=== PATIENT | male | born 1940 | race Caucasian/White ===

== ENCOUNTER 2016-10-01 07:29 | Emergency (ER) | payer OTHER ==
[2016-10-01 07:44] VITALS: TEMP 98.1; BMI 32.2
--- NOTE | 2016-10-01 08:18 | PDOC ---
History of Present Illness - General History Source: Patient, Family Exam Limitations: No Limitations - History of Present Illness Initial Comments: 10/01/16 08:12 The patient is a 76-year-old male with a past medical history of BPH, gastritis , HTN, Alzheimer's, constipation, and prostate cancer, who presents to the emergency department today complaining of abdominal pain, being unable to urinate, and constipation. The patient is primarily Malawian-speaking however his daughter is in the room who translates. Patient states that his symptoms began approximately 2 days ago. He states that he has a weakened stream, and it is hard for him to initiate urination. He states that he feels a lot of pressure near his genital region. He admits to dysuria, urgency and frequency. Denies hematuria. Daughter states that his pants are wet, because he is "dribbling urine". His last bowel movement was 2 days ago. Denies fevers, chills , fatigue, weakness, weight change, recent illness, nausea, vomiting, diarrhea, and blood in the stool. <Liz Hendricks - Last Filed: 10/02/16 08:35> <Cleo Matthews - Last Filed: 10/02/16 09:59> - General Chief Complaint: Urinary Problem Stated Complaint: UNABLE TO MAKE A BOWEL MOVEMENT/UNABLE TO URINATE Time Seen by Provider: 10/01/16 07:48 Past History - Travel Traveled outside of the country in the last 30 days: No Close contact w/someone who was outside of country & ill: No - Past Medical History Anemia: No Asthma: No Cancer: Yes (PROSTATE CANCER) Cardiac Disorders: No CVA: No COPD: No Dementia: Yes (ALZHEIMER'S) Diabetes: No GI Disorders: Yes (GASTRITIS) Disorders: No HTN: Yes Hypercholesterolemia: No Liver Disease: No Suicide Attempt (Hx): No Seizures: No Thyroid Disease: No - Surgical History Abdominal Surgery: No Appendectomy: No Cardiac Surgery: No Cholecystectomy: No Lung Surgery: No Neurologic Surgery: No Orthopedic Surgery: No - Immunization History Immunization Up to Date: No - Psycho/Social/Smoking Cessation Hx Anxiety: No Suicidal Ideation: No Smoking History: Never smoked Have you smoked in the past 12 months: No Information on smoking cessation initiated: No Hx Alcohol Use: No Drug/Substance Use Hx: No Substance Use Type: None Hx Substance Use Treatment: No <Liz Hendricks - Last Filed: 10/02/16 08:35> <Cleo Matthews - Last Filed: 10/02/16 09:59> - Past Medical History Allergies/Adverse Reactions: Allergies Allergy/AdvReac Type Severity Reaction Status Date / Time No Known Allergies Allergy Verified 10/01/16 07:41 Home Medications: Ambulatory Orders Amlodipine Besylate [Norvasc -] 5 mg PO DAILY 10/01/16 Atorvastatin Ca [Lipitor] 80 mg PO HS 10/01/16 Bisacodyl [Dulcolax -] 5 mg PO DAILY 10/01/16 Cholecalciferol (Vitamin D3) [Vitamin D3 -] 50,000 unit PO DAILY 10/01/16 Citalopram Hydrobromide [Celexa -] 10 mg PO DAILY 10/01/16 Cyanocobalamin (Vitamin B-12) [Vitamin B-12] 5,000 mcg PO DAILY 10/01/16 Furosemide [Lasix -] 20 mg PO DAILY 10/01/16 Loratadine 10 mg PO DAILY 10/01/16 Losartan Potassium [Cozaar -] 25 mg PO DAILY 10/01/16 Omeprazole 20 mg PO DAILY 10/01/16 Oxybutynin Chloride [Oxybutynin Chloride ER] 10 mg PO DAILY 10/01/16 Tamsulosin HCl [Flomax] 0.4 mg PO DAILY 10/01/16 Review of Systems - Review of Systems Able to Perform ROS?: Yes Constitutional: No: Chills, Fever, Malaise, Weakness, Unintentional Wgt. Loss ABD/GI: Yes: Constipated, Other (Abdominal pressure). No: Vomiting : Yes: Burning, Dysuria, Frequency, Incontinence, Urgency. No: Flank Pain, Hematuria <Luciana Hendricksca - Last Filed: 10/02/16 08:35> *Physical Exam - Vital Signs Last Vital Signs Temp Pulse Resp BP Pulse Ox 98.1 F 84 18 133/105 100 10/01/16 07:42 10/01/16 07:42 10/01/16 07:42 10/01/16 07:42 10/01/16 07:42 - Physical Exam General Appearance: Yes: Nourished, Appropriately Dressed, Other (Urine stain on front of pants. AAOx3, breathing easily). No: Apparent Distress (Pt. appears anxious) Respiratory/Chest: positive: Lungs Clear, Normal Breath Sounds. negative: Respiratory Distress, Accessory Muscle Use Cardiovascular: positive: Regular Rhythm, Regular Rate, S1, S2 (present). negative: Murmur Gastrointestinal/Abdominal: positive: Tender (TTP diffusely, worse over suprapubic region), Soft, Decreased BS, Distended. negative: Organomegaly, Pulsatile Mass Male Genitalia: positive: normal genitalia. negative: normal prostate (enlarged , smooth prostate), testicular tenderness, epididymus tender, hematuria Rectal Exam: positive: heme negative stool, normal rectal tone. negative: NL Prostate (enlarged smooth), heme positive stool Neurologic: positive: marketing strategist II-XII NML intact, Fully Oriented, Alert, Normal Mood/ Affect, Normal Response, Motor Strength 5/5 <Liz Hendricks - Last Filed: 10/02/16 08:35> - Vital Signs Last Vital Signs Temp Pulse Resp BP Pulse Ox 98.1 F 65 18 145/77 99 10/01/16 07:42 10/01/16 15:01 10/01/16 15:01 10/01/16 15:01 10/01/16 15:01 <Cleo Matthews - Last Filed: 10/02/16 09:59> ED Treatment Course - LABORATORY CBC & Chemistry Diagram: 10/01/16 09:00 10/01/16 09:00 - RADIOLOGY Radiology Studies Ordered: Category Date Time Status ABDOMEN-KUB FLAT PLATE [RAD] Stat Radiology 10/01/16 08:10 Ordered <Liz Hendricks - Last Filed: 10/02/16 08:35> - LABORATORY CBC & Chemistry Diagram: 10/01/16 09:00 10/01/16 09:00 - ADDITIONAL ORDERS Additional order review: 10/01/16 09:00 RBC 3.78 L MCV 90.0 MCHC 34.3 RDW 13.4 MPV 7.6 Neutrophils % 88.5 H Lymphocytes % 5.7 L Monocytes % 4.6 Eosinophils % 0.9 Basophils % 0.3 - Medications Given in the ED: ED Medications Discontinued Medications Generic Name Dose Route Start Last Admin Trade Name Freq PRN Reason Stop Dose Admin Sodium Chloride 1,000 mls @ 125 mls/hr 10/01/16 10:06 10/01/16 10:15 Normal Saline - IV 10/01/16 18:05 125 mls/hr ASDIR STA Administration <Cleo Matthews - Last Filed: 10/02/16 09:59> Medical Decision Making - Medical Decision Making 10/01/16 08:24 The patient is a 76-year-old male with a past medical history of BPH, gastritis , HTN, Alzheimer's, constipation, and prostate cancer, who presents to the emergency department today complaining of suprapubic pain, being unable to urinate, and constipation. Vital signs are stable, patient is afebrile. Symptoms concerning for urinary retention, and possible urinary tract infection. 1. CBC, CMP, UA, UC 2. KUB flat and upright 3. Bladder scanner to look for retention 4. Re-evaluate 10/01/16 12:14 Pt. has made a little urine, but still c/o of pressure, but feeling better. Urinalysis is negative for infection at this time. Lab work is notable for a white blood cell count of 12.8 with 88% lymphs, and a sodium of 128. We will give IV fluids at this time for the sodium. WBC possibly elevated d/t constipation. Bladder scanner shows greater than 600 mL of urine within the lower bladder will order straight catheter at this time. X-ray shows no evidence of obstruction. With a nonspecific bowel gas pattern. 10/01/16 13:18 Pt. received straight cath with 695 ml of output. Pt. states he is feeling much better now that he has urinated. VVS, and pt is afebrile, will discharge pt home when IV fluids finish. 10/01/16 14:22 IV fluids are finished at this time. Pt. able to urine approximately 200ml of urine after cath out. Pt. wants to move his bowels. Pt to be discharged home. He is to follow up with his primary care doctor within the week. <Liz Hendricks - Last Filed: 10/02/16 08:35> *DC/Admit/Observation/Transfer - Discharge Dispostion Admit: No <Liz Hendricks - Last Filed: 10/02/16 08:35> - Attestations Physician Attestion: I reviewed the case with the mid-level practitioner and agree with the mid- level practitioner's assessment, diagnosis and disposition. <ByronCleo - Last Filed: 10/02/16 09:59> Diagnosis at time of Disposition: Acute urinary retention Constipation Qualifiers: Constipation type: unspecified constipation type Qualified Code(s): K59.00 - Constipation, unspecified - Discharge Dispostion Disposition: HOME Condition at time of disposition: Improved - Referrals Referrals: Josi Fortune MD [Primary Care Provider] - - Patient Instructions Printed Discharge Instructions: DI for Urinary Retention in Men, DI for Constipation Additional Instructions: Tuviste retencin urinaria y estreimiento. Termine el enema segn lo programado para ochoa colonoscopia maana. Beber mucho lquido. Raiza el seguimiento con ochoa mdico de atencin primaria antes del viernes. Regrese a la DE si tiene empeoramiento del dolor abdominal, nuevas fiebres, escalofros, cambios en el estado mental o cualquier otro cambio en adela sntomas Print Language: MONGOLIAN
[2016-10-01 09:11] LABS: BASOPHIL 0.3 % (0-2.0); EOSINOPHIL 0.9 % (0-4.5); MCH 30.9 pg (25.7-33.7); MCHC 34.3 g/dl (32.0-35.9); MEAN PLT VOLUME 7.6 fl (7.5-11.1); NEUTROPHILS 88.5 % (42.8-82.8); RDW 13.4 % (11.9-15.9); WHITE BLOOD COUNT 12.9 K/mm3 (4.0-10.0)
[2016-10-01 09:14] LABS: URINE APPEARANCE CLEAR; URINE BILIRUBIN NEGATIVE (NEGATIVE); URINE BLOOD NEGATIVE (NEGATIVE); URINE COLOR COLORLESS; URINE GLUCOSE (UA) NEGATIVE (NEGATIVE); URINE KETONE NEGATIVE (NEGATIVE); URINE LEUK ESTERASE NEGATIVE (NEGATIVE); URINE NITRITE NEGATIVE (NEGATIVE); URINE PROTEIN NEGATIVE (NEGATIVE); URINE UROBILINOGEN NEGATIVE E.U./dl (0.2-1.0)
[2016-10-01 09:34] LABS: ALBUMIN 4.1 g/dl (3.4-5.0); ANION GAP 9 (8-16); CALCIUM 8.7 mg/dL (8.5-10.1); CO2 26 mmol/L (21-32); CREATININE 0.7 mg/dL (0.7-1.3); GLUCOSE,RANDOM 104 mg/dL (74-106); SGOT/AST 18 U/L (15-37); SGPT/ALT 21 U/L (12-78)
[2016-10-01 09:35] LABS: ALK PHOS 169 U/L (45-117); BILIRUBIN,TOTAL 0.6 mg/dL (0.2-1.0); TOT PROT 7.4 g/dl (6.4-8.2)
[2016-10-01 10:02] LABS: PLATELET COUNT 221 K/MM3 (134-434); PLATELET ESTIMATE ADEQUATE (NORMAL)
[2016-10-01] MEDS ORDERED: SODIUM CHLORIDE 1,000 ML IV STA (10:06)
[2016-10-01] MEDS ORDERED: LIDOCAINE HCL 2% JELLY 10 ML CARTRIDGE ONE (12:31)
[2016-10-01 15:02] VITALS: BP 145/77; PULSE 65
== END 2016-10-01 15:02 | disposition home or self-care (01) ==
LOC: JER 07:29
PROC: 3E0337Z Introduction of Electrolytic and Water Balance Substance into Peripheral Vein, Percutaneous Approach (ICD-10-PCS; principal; 2016-10-01)
PROC: 0T9B7ZZ Drainage of Bladder, Via Natural or Artificial Opening (ICD-10-PCS; 2016-10-01)
DX: N40.1 Benign prostatic hyperplasia with lower urinary tract symptoms (principal); C61 Malignant neoplasm of prostate; R33.8 Other retention of urine; K59.00 Constipation, unspecified; I10 Essential (primary) hypertension; G30.9 Alzheimer's disease, unspecified; F02.80 Dementia in other diseases classified elsewhere, unspecified severity, without behavioral disturbance, psychotic disturbance, mood disturbance, and anxiety
CPT/HCPCS: 36415; 51701; 74000-TC; 80053; 81003; 82272; 85025; 87086; 96360; 96361; 99282-25

== ENCOUNTER 2016-12-23 10:12 | Emergency (ER) | payer OTHER ==
[2016-12-23 10:19] VITALS: BMI 28.9
--- NOTE | 2016-12-23 10:39 | PDOC ---
History of Present Illness - General Chief Complaint: Hematuria Stated Complaint: BLOOD IN URINE Time Seen by Provider: 12/23/16 10:22 History Source: Patient, Family - History of Present Illness Timing/Duration: reports: constant Past History - Past Medical History Allergies/Adverse Reactions: Allergies Allergy/AdvReac Type Severity Reaction Status Date / Time No Known Allergies Allergy Verified 12/23/16 11:00 Home Medications: Ambulatory Orders Amlodipine Besylate [Norvasc -] 5 mg PO DAILY 10/01/16 Atorvastatin Ca [Lipitor] 80 mg PO HS 10/01/16 Bisacodyl [Dulcolax -] 5 mg PO DAILY 10/01/16 Cholecalciferol (Vitamin D3) [Vitamin D3 -] 50,000 unit PO DAILY 10/01/16 Citalopram Hydrobromide [Celexa -] 10 mg PO DAILY 10/01/16 Cyanocobalamin (Vitamin B-12) [Vitamin B-12] 5,000 mcg PO DAILY 10/01/16 Furosemide [Lasix -] 20 mg PO DAILY 10/01/16 Loratadine 10 mg PO DAILY 10/01/16 Losartan Potassium [Cozaar -] 25 mg PO DAILY 10/01/16 Omeprazole 20 mg PO DAILY 10/01/16 Oxybutynin Chloride [Oxybutynin Chloride ER] 10 mg PO DAILY 10/01/16 Tamsulosin HCl [Flomax] 0.4 mg PO DAILY 10/01/16 Cephalexin [Keflex] 500 mg PO BID #14 capsule 12/23/16 Anemia: No Asthma: No Cancer: Yes (PROSTATE CANCER) Cardiac Disorders: No CVA: No COPD: No Dementia: Yes (ALZHEIMER'S) Diabetes: No GI Disorders: Yes (GASTRITIS) Disorders: No HTN: Yes Hypercholesterolemia: No Liver Disease: No Seizures: No Thyroid Disease: No - Surgical History Abdominal Surgery: No Appendectomy: No Cardiac Surgery: No Cholecystectomy: No Lung Surgery: No Neurologic Surgery: No Orthopedic Surgery: No - Immunization History Immunization Up to Date: No - Suicide/Smoking/Psychosocial Hx Smoking History: Never smoked Have you smoked in the past 12 months: No Hx Alcohol Use: No Drug/Substance Use Hx: No Substance Use Type: None Hx Substance Use Treatment: No Review of Systems - Review of Systems Constitutional: No: Chills, Fever ABD/GI: No: Nausea, Vomiting, Abdominal cramping : Yes: Hematuria. No: Burning, Dysuria, Discharge, Frequency, Flank Pain, Testicular Mass, Testicular Swelling, Testicular Pain *Physical Exam - Vital Signs Last Vital Signs Temp Pulse Resp BP Pulse Ox 98.1 F 66 18 148/68 98 12/23/16 10:17 12/23/16 10:17 12/23/16 10:17 12/23/16 10:17 12/23/16 10:17 - Physical Exam General Appearance: Yes: Appropriately Dressed. No: Apparent Distress HEENT: positive: Normal Voice Neck: positive: Supple Respiratory/Chest: negative: Respiratory Distress Gastrointestinal/Abdominal: positive: Soft. negative: Tender Musculoskeletal: negative: CVA Tenderness Integumentary: positive: Dry, Warm Neurologic: positive: Fully Oriented, Alert, Normal Mood/Affect ED Treatment Course - LABORATORY CBC & Chemistry Diagram: 12/23/16 10:58 12/23/16 10:58 Medical Decision Making - Medical Decision Making 12/23/16 10:35 76-year-old male history of gastritis, hypertension, on asa (81mg), prostate cancer, status post chemotherapy 2 years ago, utis, brought in by family for gross hematuria. Patient states for the past 2-3 days, whenever he urinates, there is mostly blood. Denies dysuria as documented at triage and no frequency , flank pain, nausea, vomiting, fever or chills. No h/o renal stones. No unexplained weight loss currently. No tobacco hx See exam Painless hematuria S/p chemo for "early prostate cancer" 2 years ago On baby asa No dizziness, weakness, unexplained weight loss No dysuria/freq, n/v/f/c No h/o renal stones Stable and well dorothy w/ unremarkable exam ?uti vs cancer recurrence, less likely stone given no flank pain, n/v -labs/ua -anticipate discharge w/ ?abx and f/u for further eval 12/23/16 11:04 12/23/16 11:05 12/23/16 11:49 Labs unremarkable. UA with 3+ blood and 2+ proteins, no nitrites. Leuk esterase not reported at this time. Will dc with antibiotics (prior sensitivities reviewed) and give referral to 12/23/16 12:13 *DC/Admit/Observation/Transfer Diagnosis at time of Disposition: Painless hematuria - Discharge Dispostion Disposition: HOME Condition at time of disposition: Good - Prescriptions Prescriptions: Cephalexin [Keflex] 500 mg PO BID #14 capsule - Referrals Referrals: Josi Fortune MD [Primary Care Provider] - David De La Cruz MD., [Staff Physician] - - Patient Instructions Printed Discharge Instructions: DI for Hematuria Additional Instructions: Ochoa anlisis de gricelda fue normal. Usted no estaba anmico y ochoa funcin renal era normal. Es posible que usted tenga patel infeccin en ochoa orina y nosotros le hemos comenzado a usar antibiticos. Por favor llame al Dr. De La Cruz de urologa maana para hacer patel valencia para ser visto en 1 semana ya que necesitar ochoa pr stata y vejiga comprobada. Mientras tanto, si los sntomas empeoran, regrese inmediatamente a urgencias Print Language: SCOTTISH
[2016-12-23 10:45] LABS: PH,URINE 7.5 (5.0-8.0); URINE APPEARANCE CLEAR; URINE BILIRUBIN NEGATIVE (NEGATIVE); URINE BLOOD 3+ (NEGATIVE); URINE COLOR RED; URINE GLUCOSE (UA) NEGATIVE (NEGATIVE); URINE KETONE NEGATIVE (NEGATIVE); URINE NITRITE NEGATIVE (NEGATIVE); URINE UROBILINOGEN 0.2 mg/dL (0.2-1.0)
[2016-12-23 10:51] LABS: URINE LEUK ESTERASE TRACE (NEGATIVE); URINE PROTEIN 2+ (NEGATIVE)
[2016-12-23 10:56] LABS: URINE BACTERIA RARE /hpf (NONE SEEN); URINE RBC 15 /hpf (0-3); URINE WBC 4 /hpf (3-5)
[2016-12-23 11:03] LABS: BASOPHIL 0.4 % (0-2.0); EOSINOPHIL 2.3 % (0-4.5); MCH 30.9 pg (25.7-33.7); MCHC 33.5 g/dl (32.0-35.9); MEAN CELL VOLUME 92.3 fl (80-96); MEAN PLT VOLUME 8.2 fl (7.5-11.1); NEUTROPHILS 77.8 % (42.8-82.8); PLATELET COUNT 207 K/MM3 (134-434); RDW 13.9 % (11.9-15.9); WHITE BLOOD COUNT 9.9 K/mm3 (4.0-10.0)
[2016-12-23 11:30] LABS: ALBUMIN 3.8 g/dl (3.4-5.0); ALK PHOS 143 U/L (45-117); ANION GAP 5 (8-16); BILIRUBIN,TOTAL 0.8 mg/dL (0.2-1.0); CALCIUM 8.3 mg/dL (8.5-10.1); CO2 28 mmol/L (21-32); CREATININE 0.9 mg/dL (0.7-1.3); GLUCOSE,RANDOM 91 mg/dL (74-106); SGOT/AST 23 U/L (15-37); SGPT/ALT 28 U/L (12-78)
[2016-12-23 12:13] VITALS: BP 128/81; PULSE 63; TEMP 98
== END 2016-12-23 12:13 | disposition home or self-care (01) ==
LOC: JER 10:12
DX: R31.0 Gross hematuria (principal); Z85.46 Personal history of malignant neoplasm of prostate; Z87.440 Personal history of urinary (tract) infections; I10 Essential (primary) hypertension; Z79.82 Long term (current) use of aspirin
CPT/HCPCS: 36415; 80053; 81003; 81015; 85025; 87086; 99282-25

== ENCOUNTER 2018-07-16 10:21 | Inpatient (IN) | payer OTHER ==
[2018-07-16 10:44] VITALS: BMI 25.8
[2018-07-16] MEDS ORDERED: ACETAMINOPHEN 1000 MG/100 ML VIAL (NON FORMULARY) IVPB ONE (10:45)
[2018-07-16] MEDS ORDERED: SODIUM CHLORIDE 1,000 ML IV STA (10:45)
[2018-07-16] MEDS ORDERED: ACETAMINOPHEN INJECTION 100 ML IVPB ONE (11:08)
[2018-07-16 11:34] LABS: VENOUS PC02 43.5 mmHg (41-51); VENOUS PH 7.4 (7.31-7.41); VENOUS PO2 60.2 mmHg (30-40)
[2018-07-16 11:40] LABS: EPI CELLS 0.1 /HPF (0-5/HPF); PH,URINE 6.5 (5.0-8.0); URINE APPEARANCE CLEAR; URINE BILIRUBIN NEGATIVE (NEGATIVE); URINE CASTS 1 /lpf (0-8); URINE COLOR YELLOW; URINE GLUCOSE (UA) NEGATIVE (NEGATIVE); URINE KETONE NEGATIVE (NEGATIVE); URINE LEUK ESTERASE TRACE (NEGATIVE); URINE NITRITE NEGATIVE (NEGATIVE); URINE PROTEIN NEGATIVE (NEGATIVE); URINE RBC 1 /hpf (0-4); URINE UROBILINOGEN 0.2 mg/dL (0.2-1.0); URINE WBC 2 /hpf (0-5)
[2018-07-16 11:40] LABS: BASO % 0.2 % (0-2.0); EOS % 0.9 % (0-4.5); HEMATOCRIT 43.7 % (35.4-49); HEMOGLOBIN 14.7 GM/dL (11.7-16.9); LYMPH % 5.1 % (8-40); MCH 31.3 pg (25.7-33.7); MCHC 33.7 g/dl (32.0-35.9); MEAN CELL VOLUME 92.9 fl (80-96); MEAN PLT VOLUME 9.1 fl (7.5-11.1); MONO % 6.4 % (3.8-10.2); NEUT % 87.4 % (42.8-82.8); PLATELET COUNT 193 K/MM3 (134-434); RBC 4.71 M/mm3 (4.00-5.60); RDW 13.6 % (11.9-15.9); WHITE BLOOD COUNT 13.3 K/mm3 (4.0-10.0)
[2018-07-16] MEDS ORDERED: ALBUTEROL SO4 2.5/IPRATROPIUM 0.5 INH SOL 3 ML VIAL.NEB. NEB ONE ×2 (11:50→11:59)
[2018-07-16 11:51] LABS: ALBUMIN 3.9 g/dl (3.4-5.0); ALK PHOS 117 U/L (45-117); ANION GAP 9 MMOL/L (8-16); BILIRUBIN,TOTAL 0.7 mg/dL (0.2-1); BLOOD UREA NITROGEN 12 mg/dL (7-18); CALCIUM 9.1 mg/dL (8.5-10.1); CHLORIDE 101 mmol/L (98-107); CO2 27 mmol/L (21-32); GLUCOSE,RANDOM 134 mg/dL (74-106); INR 1.09 (0.83-1.09); MAGNESIUM 1.8 mg/dL (1.8-2.4); N-TERMINAL BNP 104.7 pg/ml (5-450); POTASSIUM 3.7 mmol/L (3.5-5.1); PROTHROMBIN TIME (PATIENT) 12.9 SEC (9.7-13.0); SGOT/AST 30 U/L (15-37); SGPT/ALT 36 U/L (13-61); SODIUM 136 mmol/L (136-145); TOT PROT 7.6 g/dl (6.4-8.2)
[2018-07-16 11:53] LABS: ACTIVATED PTT 38.1 SECONDS (25.2-36.5)
--- NOTE | 2018-07-16 12:32 | EKG ---
Test Reason : Blood Pressure : / mmHG Vent. Rate : 111 BPM Atrial Rate : 111 BPM P-R Int : 158 ms QRS Dur : 088 ms QT Int : 312 ms P-R-T Axes : 067 076 068 degrees QTc Int : 424 ms SINUS TACHYCARDIA OTHERWISE NORMAL ECG WHEN COMPARED WITH ECG OF 16-JAN-2017 14:11, VENT. RATE HAS INCREASED BY 50 BPM Confirmed by GALE FAUSTIN MD ([id number]) on 07/16/2018 12:32:15 PM Referred By: Confirmed By:GALE FAUSTIN MD
--- NOTE | 2018-07-16 13:00 | PDOC ---
Documentation entered by Britany Callahan SCRIBE, acting as scribe for Valarie Hair MD. Valarie Hair MD: This documentation has been prepared by the [place] michelle Amanda, SCRIBE, under my direction and personally reviewed by me in its entirety. I confirm that the documentation accurately reflects all work, treatment, procedures, and medical decision making performed by me. History of Present Illness - General Chief Complaint: Congestive Heart Failure Stated Complaint: Shortness of Breath Time Seen by Provider: 07/16/18 10:27 History Source: Patient, Family Exam Limitations: Dementia, Language Barrier - History of Present Illness Initial Comments: 07/16/18 10:41 The patient is an 78 year old male with a significant past medical history of BPH, gastritis, HTN, Alzheimer's, constipation, and prostate cancer, who presents to the ED with family who provides history. The family at bedside reports the patient has had a cough for approximately one week which has worsened over the past 2 days. The family reports the cough is productive for 2 days and associated with fever last night. Allergies: NKDA Social Hx: no tobacco. occasional ETOH. PCP: Dr. Garcia 07/18/18 08:54 Past History - Past Medical History Allergies/Adverse Reactions: Allergies Allergy/AdvReac Type Severity Reaction Status Date / Time No Known Allergies Allergy Verified 07/16/18 10:44 Home Medications: Ambulatory Orders Atorvastatin Ca [Lipitor] 80 mg PO HS 10/01/16 Citalopram Hydrobromide [Celexa -] 10 mg PO DAILY 10/01/16 Furosemide [Lasix -] 20 mg PO DAILY 10/01/16 Loratadine 10 mg PO DAILY 10/01/16 Losartan Potassium [Cozaar -] 100 mg PO DAILY 10/01/16 Oxybutynin Chloride [Oxybutynin Chloride ER] 10 mg PO DAILY 10/01/16 Tamsulosin HCl [Flomax] 0.4 mg PO DAILY 10/01/16 Albuterol Sulfate Inhaler - [Ventolin Hfa Inhaler -] 1 puff IH PRN 07/16/18 Aspirin [ASA -] 81 mg PO DAILY 07/16/18 Donepezil HCl 10 mg PO DAILY 07/16/18 Memantine HCl 10 mg PO BID 07/16/18 Polyethylene Glycol 3350 17 gm PO DAILY 07/16/18 Quetiapine Fumarate [Quetiapine Fumarate ER] 50 mg PO DAILY 07/16/18 Quetiapine Fumarate [Seroquel -] 25 mg PO BID 07/17/18 Quetiapine Fumarate [Seroquel -] 75 mg PO HS 07/17/18 Solifenacin Succinate [Vesicare -] 10 mg PO DAILY 07/17/18 Anemia: No Asthma: No Cancer: Yes (PROSTATE CANCER) Cardiac Disorders: No CVA: No COPD: No Dementia: Yes (ALZHEIMER'S) Diabetes: No GI Disorders: Yes (GASTRITIS) Disorders: No HTN: Yes Hypercholesterolemia: No Liver Disease: No Seizures: No Thyroid Disease: No - Surgical History Abdominal Surgery: No Appendectomy: No Cardiac Surgery: No Cholecystectomy: No Lung Surgery: No Neurologic Surgery: No Orthopedic Surgery: No - Immunization History Immunization Up to Date: No - Suicide/Smoking/Psychosocial Hx Smoking History: Never smoked Have you smoked in the past 12 months: No Hx Alcohol Use: No Drug/Substance Use Hx: No Substance Use Type: None Hx Substance Use Treatment: No Review of Systems - Review of Systems Able to Perform ROS?: No (Hx as per family) *Physical Exam - Vital Signs Last Vital Signs Temp Pulse Resp BP Pulse Ox 101.4 F H 116 H 20 185/96 H 91 L 07/16/18 10:41 07/16/18 10:41 07/16/18 10:41 07/16/18 10:41 07/16/18 10:41 - Physical Exam Comments: 07/16/18 11:00 GENERAL: The patient is in no acute distress. HEAD: Normal EYES: PERRLA, EOMI, sclera anicteric, conjunctiva clear. ENT: Ears normal, nares patent, oropharynx clear without exudates. Moist mucous membranes. NECK: Normal range of motion, supple without JVD LUNGS: (+) course breath sounds bilaterally. Breath sounds equal HEART: (+) tachycardic. Regular rhythm, normal S1 and S2 without murmur, rub or gallop. ABDOMEN: Soft, nontender, normoactive bowel sounds. No guarding, no rebound. No masses palpable. EXTREMITIES: Normal range of motion, no edema. NEUROLOGICAL: Cranial nerves II through XII grossly intact. Normal speech. No focal neurological deficits. SKIN: Warm, Dry, normal turgor, no rashes or lesions noted. 07/18/18 08:54 ED Treatment Course - LABORATORY CBC & Chemistry Diagram: 07/18/18 05:30 07/18/18 05:30 - RADIOLOGY Radiology Studies Ordered: Category Date Time Status CHEST X-RAY PORTABLE* [RAD] Stat Radiology 07/16/18 10:31 Ordered Medical Decision Making - Medical Decision Making 07/16/18 10:48 78 yo M presenting to the ER with a complaint of cough Cough present for the past week, worsened over the past 2 days (+) Fevers (+) Ill contact = family member EKG - ST rate of 111 bpm, axis nml, intervals nml no st elevation or depression 07/16/18 11:18 07/16/18 11:45 Laboratory Tests 07/16/18 07/16/18 07/16/18 11:00 11:10 11:25 WBC 13.3 H Hgb 14.7 Hct 43.7 Plt Count 193 VBG pH 7.40 POC VBG pCO2 43.5 POC VBG pO2 60.2 H Urine Blood Negative Urine Nitrite Negative Urine WBC (Auto) 2 Urine RBC (Auto) 1 CXR - no acute infiltrate 07/16/18 11:55 Laboratory Tests 07/16/18 11:00 Sodium 136 Potassium 3.7 Chloride 101 Carbon Dioxide 27 BUN 12 Creatinine 1.0 Random Glucose 134 H Creatine Kinase 654 H Troponin I 0.04 B-Natriuretic Peptide 104.7 07/16/18 12:59 Supplemental O2 removed Pt O2 saturation decreased to 89% Will give Ceftriaxone and Azithromycin Admitted to hospitalist *DC/Admit/Observation/Transfer Diagnosis at time of Disposition: URI (upper respiratory infection) Qualifiers: URI type: unspecified URI Qualified Code(s): J06.9 - Acute upper respiratory infection, unspecified Pneumonia Qualifiers: Pneumonia type: due to unspecified organism Laterality: unspecified laterality Lung location: unspecified part of lung Qualified Code(s): J18.9 - Pneumonia, unspecified organism - Discharge Dispostion Condition at time of disposition: Stable Decision to Admit order: Yes - Referrals - Patient Instructions - Post Discharge Activity
[2018-07-16] MEDS ORDERED: CEFTRIAXONE 1 GM in DEXTROSE 5%-WATER - 50 ML IVPB ONE (13:03)
[2018-07-16] MEDS ORDERED: AZITHROMYCIN IVPB 500 MG in DEXTROSE 5%-WATER - 250 ML IVPB ONE (13:03)
[2018-07-16] MEDS ORDERED: AZITHROMYCIN IVPB 500 MG/250 ML BAG IVPB ONE (13:10)
[2018-07-16] MEDS ORDERED: CEFTRIAXONE 1 GM/50 ML BAG ONE (13:10)
[2018-07-16] MEDS ORDERED: SODIUM CHLORIDE 1,000 ML IV SCH ×2 (14:00→22:34)
[2018-07-16] MEDS ORDERED: ACETAMINOPHEN 325 MG TABLET (FP) PO PRN (14:02)
[2018-07-16] MEDS ORDERED: ALBUTEROL SO4 0.083% IH SOL 2.5 MG/3 ML VIAL.NEB. NEB PRN (14:07)
--- NOTE | 2018-07-16 14:08 | HP ---
CHIEF COMPLAINT: Cough x 2 weeks, worsening SOB x 2days PCP: Dr Garcia Urologist: Dr Vasquez HISTORY OF PRESENT ILLNESS: Hx was obtained from daughter by the bedside as patient's dementia is severe Pt is an 78 yo M with a signif PMHx of BPH, gastritis, HTN, Alzheimer's, constipation, and prostate cancer s/p radiation, chemotx, presenting with a 2 week hx of productive cough and 2 day hx of worsening SOB. There was also fever noted at home prior to presentation. Pt is able to ambulate at home without support, but yesterday he was noted to have SOB with minimal activity. No leg swelling, no PND. No known CAD hx or procedures. Pt has no hx of COPD/asthma and does not use supplementary O2 at home. In the ED he was noted to desaturate to the 80s off oxygen. Pt was in contact with sick son about 2 weeks ago who had respiratory symptoms, unclear the final diagnosis for son at the time. Pt received flu vaccine in December 2017 per daughter, unclear if he got the pneumonia vaccine. ER course was notable for: (1)Tmax-101.1, DC-116, RR-20, 185/96 (2) CXR- no infiltrates noted (3) WBC-13.7 (4) Azithromycin 500mg/Ceftriaxone 1g/ NS 1L (5)EKG- ST-111bpm, No std, no jeremiah, Nl axis, [id number] Recent Travel: PAST MEDICAL HISTORY: BPH, gastritis, HTN, Alzheimer's, constipation, and prostate cancer PAST SURGICAL HISTORY: Urologic (likely cystoscopy) Social History: Smoking:Denies Alcohol:Denies Drugs: Denies Family History: Allergies No Known Allergies Allergy (Verified 07/16/18 10:44) HOME MEDICATIONS: Home Medications Medication Instructions Recorded Atorvastatin Ca [Lipitor] 80 mg PO HS 10/01/16 Citalopram Hydrobromide [Celexa -] 10 mg PO DAILY 10/01/16 Furosemide [Lasix -] 20 mg PO DAILY 10/01/16 Loratadine 10 mg PO DAILY 10/01/16 Losartan Potassium [Cozaar -] 100 mg PO DAILY 10/01/16 Oxybutynin Chloride [Oxybutynin 10 mg PO DAILY 10/01/16 Chloride ER] Tamsulosin HCl [Flomax] 0.4 mg PO DAILY 10/01/16 Albuterol Sulfate Inhaler - 1 puff IH PRN 07/16/18 [Ventolin Hfa Inhaler -] Aspirin [ASA -] 81 mg PO DAILY 07/16/18 Donepezil HCl 10 mg PO DAILY 07/16/18 Memantine HCl 10 mg PO DAILY 07/16/18 Polyethylene Glycol 3350 17 gm PO DAILY 07/16/18 Quetiapine Fumarate [Quetiapine 50 mg PO DAILY 07/16/18 Fumarate ER] REVIEW OF SYSTEMS CONSTITUTIONAL: fever+, chills+, Absent: diaphoresis, generalized weakness, malaise, loss of appetite, weight change HEENT: Absent: rhinorrhea, nasal congestion, throat pain, throat swelling, difficulty swallowing, mouth swelling, ear pain, eye pain, visual changes CARDIOVASCULAR: Absent: chest pain, syncope, palpitations, irregular heart rate, lightheadedness , peripheral edema RESPIRATORY: cough+, shortness of breath+, dyspnea with exertion+ Absent: orthopnea, wheezing, stridor, hemoptysis GASTROINTESTINAL: Absent: abdominal pain, abdominal distension, nausea, vomiting, diarrhea, constipation, melena, hematochezia GENITOURINARY: Absent: dysuria, frequency, urgency, hesitancy, hematuria, flank pain, genital pain MUSCULOSKELETAL: Absent: myalgia, arthralgia, joint swelling, back pain, neck pain SKIN: Absent: rash, itching, pallor HEMATOLOGIC/IMMUNOLOGIC: Absent: easy bleeding, easy bruising, lymphadenopathy, frequent infections ENDOCRINE: Absent: unexplained weight gain, unexplained weight loss, heat intolerance, cold intolerance NEUROLOGIC: Absent: headache, focal weakness or paresthesias, dizziness, unsteady gait, seizure, mental status changes, bladder or bowel incontinence PSYCHIATRIC: Absent: anxiety, depression, suicidal or homicidal ideation, hallucinations. PHYSICAL EXAMINATION Vital Signs - 24 hr 07/16/18 07/16/18 07/16/18 10:41 11:28 11:30 Temperature 101.4 F H Pulse Rate 116 H Pulse Rate [ Apical] Respiratory 20 Rate Blood Pressure 185/96 H Blood Pressure [Left Arm] O2 Sat by Pulse 91 L 98 98 Oximetry (%) 07/16/18 12:06 Temperature 99.1 F Pulse Rate Pulse Rate [ 94 H Apical] Respiratory 24 H Rate Blood Pressure Blood Pressure 163/78 [Left Arm] O2 Sat by Pulse 96 Oximetry (%) GENERAL: Awake, alert, able to follow commands, on NC HEAD: Normal with no signs of trauma. EYES: Pupils equal, round and reactive to light EARS, NOSE, THROAT: oropharynx clear without exudates. Moist mucous membranes. NECK: supple without lymphadenopathy LUNGS: Reduced Breath sounds on left, Scattered wheezes, and no crackles. HEART: Regular rate and rhythm, normal S1 and S2 without murmur ABDOMEN: Soft, nontender, not distended, normoactive bowel sounds, no guarding MUSCULOSKELETAL: Normal range of motion at all joints. No bony deformities or tenderness. No CVA tenderness. LOWER EXTREMITIES: 2+ pulses, warm, well-perfused. No calf tenderness. No peripheral edema. NEUROLOGICAL: Cranial nerves II-XII intact. Normal speech. Normal gait. PSYCHIATRIC: Cooperative. Good eye contact. Appropriate mood and affect. CBC, BMP 07/16/18 11:25 07/16/18 11:00 Laboratory Results - last 24 hr 07/16/18 07/16/18 07/16/18 10:44 11:00 11:00 WBC RBC Hgb Hct MCV MCH MCHC RDW Plt Count MPV Absolute Neuts (auto) Neutrophils % Lymphocytes % Monocytes % Eosinophils % Basophils % Nucleated RBC % PT with INR 12.90 INR 1.09 PTT (Actin FS) 38.1 H VBG pH POC VBG pCO2 POC VBG pO2 VBG HCO3 VBG O2 Sat ([place]) VBG Base Excess Sodium 136 Potassium 3.7 Chloride 101 Carbon Dioxide 27 Anion Gap 9 BUN 12 Creatinine 1.0 Creat Clearance w eGFR 71.90 Random Glucose 134 H Lactic Acid Calcium 9.1 Magnesium 1.8 Total Bilirubin 0.7 AST 30 ALT 36 Alkaline Phosphatase 117 Creatine Kinase 654 H Creatine Kinase Index 3.3 CK-MB (CK-2) 21.6 H Troponin I 0.05 0.04 B-Natriuretic Peptide 104.7 Total Protein 7.6 Albumin 3.9 Urine Color Urine Appearance Urine pH Ur Specific [place] Urine Protein Urine Glucose (UA) Urine Ketones Urine Blood Urine Nitrite Urine Bilirubin Urine Urobilinogen Ur Leukocyte Esterase Urine WBC (Auto) Urine RBC (Auto) Urine Casts (Auto) U Epithel Cells (Auto) Urine Bacteria (Auto) Influenza A (Rapid) Influenza B (Rapid) 07/16/18 07/16/18 07/16/18 11:00 11:00 11:00 WBC RBC Hgb Hct MCV MCH MCHC RDW Plt Count MPV Absolute Neuts (auto) Neutrophils % Lymphocytes % Monocytes % Eosinophils % Basophils % Nucleated RBC % PT with INR INR PTT (Actin FS) VBG pH 7.40 POC VBG pCO2 43.5 POC VBG pO2 60.2 H VBG HCO3 26.6 VBG O2 Sat ([place]) 90.0 H VBG Base Excess 2.0 Sodium Potassium Chloride Carbon Dioxide Anion Gap BUN Creatinine Creat Clearance w eGFR Random Glucose Lactic Acid 1.9 Calcium Magnesium Total Bilirubin AST ALT Alkaline Phosphatase Creatine Kinase 662 H Creatine Kinase Index 3.3 CK-MB (CK-2) 22.0 H Troponin I B-Natriuretic Peptide Total Protein Albumin Urine Color Urine Appearance Urine pH Ur Specific [place] Urine Protein Urine Glucose (UA) Urine Ketones Urine Blood Urine Nitrite Urine Bilirubin Urine Urobilinogen Ur Leukocyte Esterase Urine WBC (Auto) Urine RBC (Auto) Urine Casts (Auto) U Epithel Cells (Auto) Urine Bacteria (Auto) Influenza A (Rapid) Influenza B (Rapid) 07/16/18 07/16/18 07/16/18 11:00 11:10 11:10 WBC RBC Hgb Hct MCV MCH MCHC RDW Plt Count MPV Absolute Neuts (auto) Neutrophils % Lymphocytes % Monocytes % Eosinophils % Basophils % Nucleated RBC % PT with INR INR PTT (Actin FS) VBG pH POC VBG pCO2 POC VBG pO2 VBG HCO3 VBG O2 Sat ([place]) VBG Base Excess Sodium Potassium Chloride Carbon Dioxide Anion Gap BUN Creatinine Creat Clearance w eGFR Random Glucose Lactic Acid Calcium Magnesium Total Bilirubin AST ALT Alkaline Phosphatase Creatine Kinase Creatine Kinase Index CK-MB (CK-2) 22.0 H Troponin I B-Natriuretic Peptide Total Protein Albumin Urine Color Yellow Urine Appearance Clear Urine pH 6.5 Ur Specific [place] 1.005 L Urine Protein Negative Urine Glucose (UA) Negative Urine Ketones Negative Urine Blood Negative Urine Nitrite Negative Urine Bilirubin Negative Urine Urobilinogen 0.2 Ur Leukocyte Esterase Trace Urine WBC (Auto) 2 Urine RBC (Auto) 1 Urine Casts (Auto) 1 U Epithel Cells (Auto) 0.1 Urine Bacteria (Auto) 2.0 Influenza A (Rapid) Negative Influenza B (Rapid) Negative 07/16/18 11:25 WBC 13.3 H RBC 4.71 Hgb 14.7 Hct 43.7 MCV 92.9 MCH 31.3 MCHC 33.7 RDW 13.6 Plt Count 193 MPV 9.1 D Absolute Neuts (auto) 11.6 H Neutrophils % 87.4 H Lymphocytes % 5.1 L D Monocytes % 6.4 Eosinophils % 0.9 Basophils % 0.2 Nucleated RBC % 0 PT with INR INR PTT (Actin FS) VBG pH POC VBG pCO2 POC VBG pO2 VBG HCO3 VBG O2 Sat ([place]) VBG Base Excess Sodium Potassium Chloride Carbon Dioxide Anion Gap BUN Creatinine Creat Clearance w eGFR Random Glucose Lactic Acid Calcium Magnesium Total Bilirubin AST ALT Alkaline Phosphatase Creatine Kinase Creatine Kinase Index CK-MB (CK-2) Troponin I B-Natriuretic Peptide Total Protein Albumin Urine Color Urine Appearance Urine pH Ur Specific [place] Urine Protein Urine Glucose (UA) Urine Ketones Urine Blood Urine Nitrite Urine Bilirubin Urine Urobilinogen Ur Leukocyte Esterase Urine WBC (Auto) Urine RBC (Auto) Urine Casts (Auto) U Epithel Cells (Auto) Urine Bacteria (Auto) Influenza A (Rapid) Influenza B (Rapid) Current Medications Acetaminophen (Tylenol -) 650 mg PO Q6H PRN PRN Reason: FEVER Albuterol Sulfate (Ventolin 0.083% Nebulizer Soln -) 1 amp NEB Q8H PRN PRN Reason: SHORT OF BREATH/WHEEZING Aspirin (Asa -) 81 mg PO DAILY [facility] Atorvastatin Calcium (Lipitor -) 80 mg PO HS [facility] Citalopram Hydrobromide (Celexa -) 10 mg PO DAILY [facility] Donepezil HCl (Aricept -) 10 mg PO DAILY [facility] Heparin Sodium (Porcine) (Heparin -) 5,000 unit SQ TID [facility] Sodium Chloride (Normal Saline -) 1,000 mls @ 75 mls/hr IV ASDIR [facility] Last Admin: 07/16/18 15:03 Dose: 75 mls/hr Azithromycin 250 mg/ Dextrose 250 mls @ 250 mls/hr IVPB DAILY [facility] Ceftriaxone Sodium 1 gm/ (Dextrose) 50 mls @ 100 mls/hr IVPB DAILY [facility]; Protocol Loratadine (Claritin -) 10 mg PO DAILY [facility] Losartan Potassium (Cozaar -) 100 mg PO DAILY [facility] Memantine (Namenda -) 10 mg PO DAILY [facility] Polyethylene Glycol (Miralax (For Daily Use) -) 17 gm PO DAILY [facility] Last Admin: 07/16/18 15:03 Dose: Not Given Quetiapine Fumarate (Seroquel Xr -) 50 mg PO DAILY [facility] Solifenacin (Vesicare -) 5 mg PO DAILY [facility] Tamsulosin HCl (Flomax -) 0.4 mg PO DAILY@0830 [facility] Ambulatory Orders Atorvastatin Ca [Lipitor] 80 mg PO HS 10/01/16 Citalopram Hydrobromide [Celexa -] 10 mg PO DAILY 10/01/16 Furosemide [Lasix -] 20 mg PO DAILY 10/01/16 Loratadine 10 mg PO DAILY 10/01/16 Losartan Potassium [Cozaar -] 100 mg PO DAILY 10/01/16 Oxybutynin Chloride [Oxybutynin Chloride ER] 10 mg PO DAILY 10/01/16 Tamsulosin HCl [Flomax] 0.4 mg PO DAILY 10/01/16 Albuterol Sulfate Inhaler - [Ventolin Hfa Inhaler -] 1 puff IH PRN 07/16/18 Aspirin [ASA -] 81 mg PO DAILY 07/16/18 Donepezil HCl 10 mg PO DAILY 07/16/18 Memantine HCl 10 mg PO DAILY 07/16/18 Polyethylene Glycol 3350 17 gm PO DAILY 07/16/18 Quetiapine Fumarate [Quetiapine Fumarate ER] 50 mg PO DAILY 07/16/18 ASSESSMENT/PLAN: Pt is an 78 yo M with a signif PMHx of BPH, gastritis, HTN, Alzheimer's, depression/anxiety,CHF, constipation, and prostate cancer s/p radiation, chemotx , presenting with a 2 week hx of productive cough and 2 day hx of worsening SOB. #Sepsis secondary to Community Acquired PNA Leukocytosis, Tachycardia, fever + cough and hypoxia CURB-65-1 PSI-120 points Risk Class IV (hx of neoplastic dx), recommend inpt mx CXR- report no infiltrates CT chest w/o contrast-new RUL infiltrates Urinary legionella/PNA pending RSV pending Flu test negative LA-1.9 NS-1L given, cont @75mls/hr Received azithro 500mg ED, cont 250mg daily Received 1g Ceftriaxone in ED, cont 1g daily Tylenol for fever #BPH Cont flomax Oxybutynin #gastritis No home PPIs noted #HTN Cont losartan #Alzheimer's Cont memantine and donepezil #constipation Cont miralax #BPH/prostate cancer Appears to be in remission, Follow urologist as outpt s/p radiation, chemotx Cont oxybutnin, flomax #depression/anxiety Cont quetiapine #CHF Not in exacerbation at this time Monitor Gentle fluid hydration in setting of sepsis #FEN IV NS@75 Monitor lytes , replete as needed Sodium free diet PPx Heparin 5000 Q8H #Dispo Med surg admission Visit type - Emergency Visit Emergency Visit: Yes ED Registration Date: 07/16/18 Care time: The patient presented to the Emergency Department on the above date and was hospitalized for further evaluation of their emergent condition. - New Patient This patient is new to me today: Yes Date on this admission: 07/16/18 - Critical Care Critical Care patient: No
[2018-07-16] MEDS: POLYETHYLENE GLYCOL 3350 119 GM BTL PO SCH (15:03)
--- NOTE | 2018-07-16 15:30 | PN ---
Teaching Attending Note Name of Resident: Yamini Carney ATTENDING PHYSICIAN STATEMENT I saw and evaluated the patient. I reviewed the resident's note and discussed the case with the resident. I agree with the resident's findings and plan as documented. SUBJECTIVE: This is an 78 year old man with a history of HTN, BPH, gastritis, prostate cancer, constipation, Alzheimer's dementia, depression, anxiety who comes to the ED because of a cough because of a cough for 1-2 weeks. The cough is productive. Family reports he had a fever last night. The patient is unable to provide any history. OBJECTIVE: Vital Signs Period Temp Pulse Resp BP Sys/[place] Pulse Ox Last 24 Hr 99.1 F-101.4 F 94-116 20-24 163-185/78-96 91-98 HEART: S1S2, tachycardic LUNGS: Scattered rhonchi ABDOMEN: Soft, non-tender, non-distended, normal BS EXTREMITIES: No edema Laboratory Results - last 24 hr 07/16/18 07/16/18 07/16/18 10:44 11:00 11:00 WBC RBC Hgb Hct MCV MCH MCHC RDW Plt Count MPV Absolute Neuts (auto) Neutrophils % Lymphocytes % Monocytes % Eosinophils % Basophils % Nucleated RBC % PT with INR 12.90 INR 1.09 PTT (Actin FS) 38.1 H VBG pH POC VBG pCO2 POC VBG pO2 VBG HCO3 VBG O2 Sat ([place]) VBG Base Excess Sodium 136 Potassium 3.7 Chloride 101 Carbon Dioxide 27 Anion Gap 9 BUN 12 Creatinine 1.0 Creat Clearance w eGFR 71.90 Random Glucose 134 H Lactic Acid Calcium 9.1 Magnesium 1.8 Total Bilirubin 0.7 AST 30 ALT 36 Alkaline Phosphatase 117 Creatine Kinase 654 H Creatine Kinase Index 3.3 CK-MB (CK-2) 21.6 H Troponin I 0.05 0.04 B-Natriuretic Peptide 104.7 Total Protein 7.6 Albumin 3.9 Urine Color Urine Appearance Urine pH Ur Specific [place] Urine Protein Urine Glucose (UA) Urine Ketones Urine Blood Urine Nitrite Urine Bilirubin Urine Urobilinogen Ur Leukocyte Esterase Urine WBC (Auto) Urine RBC (Auto) Urine Casts (Auto) U Epithel Cells (Auto) Urine Bacteria (Auto) Influenza A (Rapid) Influenza B (Rapid) 07/16/18 07/16/18 07/16/18 11:00 11:00 11:00 WBC RBC Hgb Hct MCV MCH MCHC RDW Plt Count MPV Absolute Neuts (auto) Neutrophils % Lymphocytes % Monocytes % Eosinophils % Basophils % Nucleated RBC % PT with INR INR PTT (Actin FS) VBG pH 7.40 POC VBG pCO2 43.5 POC VBG pO2 60.2 H VBG HCO3 26.6 VBG O2 Sat ([place]) 90.0 H VBG Base Excess 2.0 Sodium Potassium Chloride Carbon Dioxide Anion Gap BUN Creatinine Creat Clearance w eGFR Random Glucose Lactic Acid 1.9 Calcium Magnesium Total Bilirubin AST ALT Alkaline Phosphatase Creatine Kinase 662 H Creatine Kinase Index 3.3 CK-MB (CK-2) 22.0 H Troponin I B-Natriuretic Peptide Total Protein Albumin Urine Color Urine Appearance Urine pH Ur Specific [place] Urine Protein Urine Glucose (UA) Urine Ketones Urine Blood Urine Nitrite Urine Bilirubin Urine Urobilinogen Ur Leukocyte Esterase Urine WBC (Auto) Urine RBC (Auto) Urine Casts (Auto) U Epithel Cells (Auto) Urine Bacteria (Auto) Influenza A (Rapid) Influenza B (Rapid) 07/16/18 07/16/18 07/16/18 11:00 11:10 11:10 WBC RBC Hgb Hct MCV MCH MCHC RDW Plt Count MPV Absolute Neuts (auto) Neutrophils % Lymphocytes % Monocytes % Eosinophils % Basophils % Nucleated RBC % PT with INR INR PTT (Actin FS) VBG pH POC VBG pCO2 POC VBG pO2 VBG HCO3 VBG O2 Sat ([place]) VBG Base Excess Sodium Potassium Chloride Carbon Dioxide Anion Gap BUN Creatinine Creat Clearance w eGFR Random Glucose Lactic Acid Calcium Magnesium Total Bilirubin AST ALT Alkaline Phosphatase Creatine Kinase Creatine Kinase Index CK-MB (CK-2) 22.0 H Troponin I B-Natriuretic Peptide Total Protein Albumin Urine Color Yellow Urine Appearance Clear Urine pH 6.5 Ur Specific [place] 1.005 L Urine Protein Negative Urine Glucose (UA) Negative Urine Ketones Negative Urine Blood Negative Urine Nitrite Negative Urine Bilirubin Negative Urine Urobilinogen 0.2 Ur Leukocyte Esterase Trace Urine WBC (Auto) 2 Urine RBC (Auto) 1 Urine Casts (Auto) 1 U Epithel Cells (Auto) 0.1 Urine Bacteria (Auto) 2.0 Influenza A (Rapid) Negative Influenza B (Rapid) Negative 07/16/18 11:25 WBC 13.3 H RBC 4.71 Hgb 14.7 Hct 43.7 MCV 92.9 MCH 31.3 MCHC 33.7 RDW 13.6 Plt Count 193 MPV 9.1 D Absolute Neuts (auto) 11.6 H Neutrophils % 87.4 H Lymphocytes % 5.1 L D Monocytes % 6.4 Eosinophils % 0.9 Basophils % 0.2 Nucleated RBC % 0 PT with INR INR PTT (Actin FS) VBG pH POC VBG pCO2 POC VBG pO2 VBG HCO3 VBG O2 Sat ([place]) VBG Base Excess Sodium Potassium Chloride Carbon Dioxide Anion Gap BUN Creatinine Creat Clearance w eGFR Random Glucose Lactic Acid Calcium Magnesium Total Bilirubin AST ALT Alkaline Phosphatase Creatine Kinase Creatine Kinase Index CK-MB (CK-2) Troponin I B-Natriuretic Peptide Total Protein Albumin Urine Color Urine Appearance Urine pH Ur Specific [place] Urine Protein Urine Glucose (UA) Urine Ketones Urine Blood Urine Nitrite Urine Bilirubin Urine Urobilinogen Ur Leukocyte Esterase Urine WBC (Auto) Urine RBC (Auto) Urine Casts (Auto) U Epithel Cells (Auto) Urine Bacteria (Auto) Influenza A (Rapid) Influenza B (Rapid) Home Medications Medication Instructions Recorded Atorvastatin Ca [Lipitor] 80 mg PO HS 10/01/16 Citalopram Hydrobromide [Celexa -] 10 mg PO DAILY 10/01/16 Furosemide [Lasix -] 20 mg PO DAILY 10/01/16 Loratadine 10 mg PO DAILY 10/01/16 Losartan Potassium [Cozaar -] 100 mg PO DAILY 10/01/16 Oxybutynin Chloride [Oxybutynin 10 mg PO DAILY 10/01/16 Chloride ER] Tamsulosin HCl [Flomax] 0.4 mg PO DAILY 10/01/16 Albuterol Sulfate Inhaler - 1 puff IH PRN 07/16/18 [Ventolin Hfa Inhaler -] Aspirin [ASA -] 81 mg PO DAILY 07/16/18 Donepezil HCl 10 mg PO DAILY 07/16/18 Memantine HCl 10 mg PO DAILY 07/16/18 Polyethylene Glycol 3350 17 gm PO DAILY 07/16/18 Quetiapine Fumarate [Quetiapine 50 mg PO DAILY 07/16/18 Fumarate ER] ASSESSMENT AND PLAN: This is an 78 year old man with a history of HTN, BPH, gastritis, prostate cancer, constipation, Alzheimer's dementia, depression, anxiety who presented to the ED with fever and a productive cough. 1. Sepsis (fever, tachycardia, leukocytosis) secondary to pneumonia - Ceftriaxone, Zithromax - IV fluid - Albuterol nebs as needed - Influenza A/B negative - RSV negative - Check urine pneumonia Ag - Follow-up blood cultures 2. Elevated CK - Secondary to sepsis, statin - Hold Lipitor - IV fluid 3. HTN - Continue Cozaar, Lasix 4. Hyperlipidemia - Hold Lipitor secondary to elevated CK 5. BPH, prostate cancer - Continue Flomax, oxybutynin 6. Gastritis 7. Chronic constipation - Continue Miralax 8. Alzheimer's dementia, depression, anxiety - Continue Aricept, Namenda, Celexa, Seroquel
[2018-07-16] MEDS ORDERED: LORATADINE 10 MG TABLET ONE (15:51)
[2018-07-16] MEDS ORDERED: LOSARTAN POTASSIUM 50 MG TABLET (FP) ONE (15:51)
[2018-07-16] MEDS ORDERED: DONEPEZIL HCL 5 MG TABLET (FP) ONE (15:51)
[2018-07-16] MEDS ORDERED: TAMSULOSIN HCL 0.4 MG CAP ONE (15:51)
[2018-07-16] MEDS ORDERED: ASPIRIN 81 MG CHEWABLE TABLETS ONE (15:51)
[2018-07-16] MEDS ORDERED: CITALOPRAM HYDROBROMIDE 10 MG TABLET (FP) ONE (15:51)
[2018-07-16] MEDS ORDERED: ALBUTEROL SO4 0.083% IH SOL 2.5 MG/3 ML VIAL.NEB. NEB ONE ×3 (15:52→19:14)
[2018-07-16] MEDS: ASPIRIN 81 MG CHEWABLE TABLETS PO SCH (15:58)
[2018-07-16] MEDS: LORATADINE 10 MG TABLET PO SCH (15:58)
[2018-07-16] MEDS: CITALOPRAM HYDROBROMIDE 10 MG TABLET (FP) PO SCH (15:58)
[2018-07-16] MEDS: TAMSULOSIN HCL 0.4 MG CAP PO SCH (15:59)
[2018-07-16] MEDS: LOSARTAN POTASSIUM 50 MG TABLET (FP) PO SCH (15:59)
[2018-07-16] MEDS: ALBUTEROL SO4 0.083% IH SOL 2.5 MG/3 ML VIAL.NEB. NEB PRN (16:27)
[2018-07-16 17:03] LABS: ALLENS TEST POSITIVE; ARTERIAL BLD GAS O2 SATURATION 91.3 % (95-98); ARTERIAL BLOOD GAS BASE EXCESS 2.5 meq/l (-2-2); ARTERIAL BLOOD GAS PCO2 42.4 mmHg (35-45); ARTERIAL BLOOD GAS PO2 62.7 mmHg (80-105)
[2018-07-16] MEDS: MEMANTINE HCL 10 MG TABLET (FP) PO SCH (18:15)
[2018-07-16] MEDS ORDERED: LORazepam 2 MG/ML SDV VIAL IVPUSH ONE (18:51)
[2018-07-16] MEDS ORDERED: LORazepam 2 MG/ML SDV VIAL ONE (18:56)
[2018-07-16] MEDS: SOLIFENACIN SUCCINATE 5 MG TAB (FP) PO SCH (19:34)
[2018-07-16] MEDS ORDERED: HEPARIN NA (PORCINE) 5,000 UNITS/ML 1ML VIAL ONE (21:59)
[2018-07-16] MEDS ORDERED: ATORVASTATIN CA 80 MG TABLET (FP) PO SCH (22:00)
[2018-07-16] MEDS: HEPARIN NA (PORCINE) 5,000 UNITS/ML 1ML VIAL SQ SCH (23:00)
[2018-07-17] MEDS ORDERED: ACETAMINOPHEN 1000 MG/100 ML VIAL (NON FORMULARY) IVPB ONE (01:18)
[2018-07-17] MEDS: HEPARIN NA (PORCINE) 5,000 UNITS/ML 1ML VIAL SQ SCH ×3 (06:24→22:05)
[2018-07-17 06:35] LABS: BASO % 0.2 % (0-2.0); EOS % 0.5 % (0-4.5); HEMATOCRIT 40.4 % (35.4-49); HEMOGLOBIN 13.8 GM/dL (11.7-16.9); LYMPH % 5.5 % (8-40); MCH 31.5 pg (25.7-33.7); MCHC 34.2 g/dl (32.0-35.9); MEAN CELL VOLUME 92.3 fl (80-96); MEAN PLT VOLUME 8.9 fl (7.5-11.1); MONO % 9.7 % (3.8-10.2); NEUT % 84.1 % (42.8-82.8); PLATELET COUNT 181 K/MM3 (134-434); RBC 4.38 M/mm3 (4.00-5.60)
[2018-07-17 07:02] LABS: ALBUMIN 3.5 g/dl (3.4-5.0); ALK PHOS 91 U/L (45-117); ANION GAP 7 MMOL/L (8-16); BILIRUBIN,TOTAL 0.7 mg/dL (0.2-1); BLOOD UREA NITROGEN 23 mg/dL (7-18); CALCIUM 8.2 mg/dL (8.5-10.1); CHLORIDE 104 mmol/L (98-107); CO2 29 mmol/L (21-32); CREATININE 1.4 mg/dL (0.55-1.3); GLUCOSE,RANDOM 113 mg/dL (74-106); MAGNESIUM 1.8 mg/dL (1.8-2.4); PHOSPHOROUS 4.6 mg/dL (2.5-4.9); POTASSIUM 4.3 mmol/L (3.5-5.1); SGOT/AST 55 U/L (15-37); SGPT/ALT 41 U/L (13-61); SODIUM 140 mmol/L (136-145); TOT PROT 6.8 g/dl (6.4-8.2)
[2018-07-17] MEDS: ALBUTEROL SO4 0.083% IH SOL 2.5 MG/3 ML VIAL.NEB. NEB PRN ×3 (08:49→16:57)
[2018-07-17] MEDS ORDERED: DEXTROSE 5%-WATER - 50 ML IVPB ONE (09:15)
[2018-07-17] MEDS ORDERED: cefTRIAXone SODIUM 1 GM VIAL ONE (09:15)
[2018-07-17] MEDS: TAMSULOSIN HCL 0.4 MG CAP PO SCH (09:31)
[2018-07-17] MEDS: ASPIRIN 81 MG CHEWABLE TABLETS PO SCH (09:32)
[2018-07-17] MEDS: SOLIFENACIN SUCCINATE 5 MG TAB (FP) PO SCH (09:32)
[2018-07-17] MEDS: LOSARTAN POTASSIUM 50 MG TABLET (FP) PO SCH (09:32)
[2018-07-17] MEDS: MEMANTINE HCL 10 MG TABLET (FP) PO SCH (09:33)
[2018-07-17] MEDS: DONEPEZIL HCL 10 MG TABLET (FP) PO SCH (09:33)
[2018-07-17] MEDS: CITALOPRAM HYDROBROMIDE 10 MG TABLET (FP) PO SCH (09:33)
[2018-07-17] MEDS: LORATADINE 10 MG TABLET PO SCH (09:33)
[2018-07-17] MEDS: CEFTRIAXONE 1 GM in DEXTROSE 5%-WATER - 50 ML IVPB SCH (09:34)
[2018-07-17] MEDS ORDERED: PNEUMOC 13-VAL CONJ-DIP CRM/PF 0.5 ML DISP.SYRIN IM ONE (10:00)
[2018-07-17] MEDS: POLYETHYLENE GLYCOL 3350 119 GM BTL PO SCH (10:18)
[2018-07-17] MEDS: AZITHROMYCIN IVPB 250 MG in DEXTROSE 5%-WATER - 250 ML IVPB SCH (10:39)
[2018-07-17] MEDS ORDERED: PT OWN MED DRAWER 7, Y5N ONE ×2 (11:32→14:44)
--- NOTE | 2018-07-17 14:22 | PN ---
Progress Note (short form) - Note Progress Note: PULMONARY CONSULTATION DICTATED IMP ACUTE HYPOXEMIC RESPIRATORY FAILURE LIKELY PNEUMONIA H/O BRONCHITIS PROSTATE CA HTN DEMENTIA MEDIASTINAL ADENOPATHY LIKELY REACTIVE MIGDALIA PLAN IV ABX STEROIDS INHALED BRONCHODILATORS NIPPV NEEDED SUPPLEMENTAL O2 CULTURES IVF MONITOR LYRES,RENAL FUNCTION F/U CHEST X-RAYS F/U CHEST CT [address] MCCABE Problem List - Problems (1) Acute hypoxemic respiratory failure Code(s): J96.01 - ACUTE RESPIRATORY FAILURE WITH HYPOXIA (2) Pneumonia Code(s): J18.9 - PNEUMONIA, UNSPECIFIED ORGANISM Qualifiers: Pneumonia type: due to unspecified organism Laterality: unspecified laterality Lung location: unspecified part of lung Qualified Code(s): J18.9 - Pneumonia, unspecified organism (3) URI (upper respiratory infection) Code(s): J06.9 - ACUTE UPPER RESPIRATORY INFECTION, UNSPECIFIED Qualifiers: URI type: unspecified URI Qualified Code(s): J06.9 - Acute upper respiratory infection, unspecified (4) MIGDALIA (acute kidney injury) Code(s): N17.9 - ACUTE KIDNEY FAILURE, UNSPECIFIED (5) Mediastinal adenopathy Code(s): R59.0 - LOCALIZED ENLARGED LYMPH NODES
--- NOTE | 2018-07-17 14:39 | PN ---
Physical Exam: SUBJECTIVE: Patient seen and examined at bedside this morning. Patient was in distress this morning, noted to be saturating 70% on venti mask. As per nursing , patient was noncompliant with the oxygen and kept on taking it off. He received albuterol neb treatment in the morning, but remained in respiratory distress and was placed on bipap. After which, patient looked more comfortable, and reported feeling better, saturating at 95%. OBJECTIVE: Vital Signs Temperature 98.4 F 07/17/18 10:00 Pulse Rate 95 H 07/17/18 10:00 Respiratory Rate 24 H 07/17/18 10:00 Blood Pressure 160/100 07/17/18 10:00 O2 Sat by Pulse Oximetry (%) 100 07/17/18 12:08 GENERAL: The patient is awake, alert, and fully oriented, on bipap HEAD: Normal with no signs of trauma. EYES: PERRLA, EOMI, sclera anicteric, conjunctiva clear. ENT:oropharynx clear without exudates, moist mucous membranes. NECK: Trachea midline, full range of motion, supple. LUNGS: +Scattered wheezes bilaterally HEART: Tachycardic, S1, S2 without murmur, rub or gallop. ABDOMEN: Soft, nontender, nondistended, normoactive bowel sounds. EXTREMITIES: 2+ pulses, warm, well-perfused, no edema. NEUROLOGICAL: Cranial nerves II through XII grossly intact. Normal speech, gait not observed. PSYCH: Normal mood, normal affect. SKIN: Warm, dry, normal turgor, no rashes or lesions noted Laboratory Results - last 24 hr 07/16/18 07/16/18 07/16/18 13:31 15:35 16:32 WBC RBC Hgb Hct MCV MCH MCHC RDW Plt Count MPV Absolute Neuts (auto) Neutrophils % Lymphocytes % Monocytes % Eosinophils % Basophils % Nucleated RBC % Anticoagulation Therapy No Result Required. Puncture Site Right radial ABG pH 7.40 ABG pCO2 at Pt Temp 42.4 ABG pO2 at Pt Temp 62.7 L ABG HCO3 26.8 ABG O2 Sat (Measured) 91.3 L ABG O2 Content No Result Required. ABG Base Excess 2.5 H Darius Test Positive O2 Delivery Device No Result Required. Oxygen Flow Rate Nasal Vent Mode No Result Required. Vent Rate No Result Required. Mechanical Rate No Result Required. Pressure Support Vent No Result Required. Sodium Potassium Chloride Carbon Dioxide Anion Gap BUN Creatinine Creat Clearance w eGFR Random Glucose Hemoglobin A1c % Lactic Acid 1.2 Calcium Phosphorus Magnesium Total Bilirubin AST ALT Alkaline Phosphatase Creatine Kinase Creatine Kinase Index CK-MB (CK-2) Total Protein Albumin RSV Rapid Negative 07/17/18 07/17/18 07/17/18 05:30 05:30 05:30 WBC 11.0 H RBC 4.38 Hgb 13.8 Hct 40.4 MCV 92.3 MCH 31.5 MCHC 34.2 RDW 14.0 Plt Count 181 MPV 8.9 Absolute Neuts (auto) 9.3 H Neutrophils % 84.1 H Lymphocytes % 5.5 L Monocytes % 9.7 Eosinophils % 0.5 Basophils % 0.2 Nucleated RBC % 0 Anticoagulation Therapy Puncture Site ABG pH ABG pCO2 at Pt Temp ABG pO2 at Pt Temp ABG HCO3 ABG O2 Sat (Measured) ABG O2 Content ABG Base Excess Darius Test O2 Delivery Device Oxygen Flow Rate Vent Mode Vent Rate Mechanical Rate Pressure Support Vent Sodium 140 Potassium 4.3 Chloride 104 Carbon Dioxide 29 Anion Gap 7 L BUN 23 H Creatinine 1.4 H Creat Clearance w eGFR 48.76 Random Glucose 113 H Hemoglobin A1c % 5.7 Lactic Acid Calcium 8.2 L Phosphorus 4.6 Magnesium 1.8 Total Bilirubin 0.7 AST 55 H ALT 41 Alkaline Phosphatase 91 Creatine Kinase Creatine Kinase Index CK-MB (CK-2) Total Protein 6.8 Albumin 3.5 RSV Rapid 07/17/18 09:05 WBC RBC Hgb Hct MCV MCH MCHC RDW Plt Count MPV Absolute Neuts (auto) Neutrophils % Lymphocytes % Monocytes % Eosinophils % Basophils % Nucleated RBC % Anticoagulation Therapy Puncture Site ABG pH ABG pCO2 at Pt Temp ABG pO2 at Pt Temp ABG HCO3 ABG O2 Sat (Measured) ABG O2 Content ABG Base Excess Darius Test O2 Delivery Device Oxygen Flow Rate Vent Mode Vent Rate Mechanical Rate Pressure Support Vent Sodium Potassium Chloride Carbon Dioxide Anion Gap BUN Creatinine Creat Clearance w eGFR Random Glucose Hemoglobin A1c % Lactic Acid Calcium Phosphorus Magnesium Total Bilirubin AST ALT Alkaline Phosphatase Creatine Kinase 1779 H Creatine Kinase Index 1.3 CK-MB (CK-2) 24.2 H Total Protein Albumin RSV Rapid Active Medications Generic Name Dose Route Start Last Admin Trade Name Freq PRN Reason Stop Dose Admin Acetaminophen 650 mg 07/16/18 14:02 Tylenol - PO Q6H PRN FEVER Albuterol Sulfate 1 amp 07/16/18 16:21 07/17/18 12:07 Ventolin 0.083% Nebulizer Soln - NEB 1 amp Q4H PRN Administration SHORT OF BREATH/WHEEZING Arformoterol Tartrate 1 amp 07/17/18 20:00 Brokishora (Restricted To Pulmonology/Resp) - NEB RBID MAGNUS Aspirin 81 mg 07/16/18 15:15 07/17/18 09:32 Asa - PO 81 mg DAILY MAGNUS Administration Citalopram Hydrobromide 10 mg 07/16/18 15:45 07/17/18 09:33 Celexa - PO 10 mg DAILY MAGNUS Administration Donepezil HCl 10 mg 07/17/18 10:00 07/17/18 09:33 Aricept - PO 10 mg DAILY MAGNUS Administration Heparin Sodium (Porcine) 5,000 unit 07/16/18 22:00 07/17/18 06:24 Heparin - SQ 5,000 unit TID MAGNUS Administration Azithromycin 250 mg/ Dextrose 250 mls @ 250 mls/hr 07/17/18 10:00 07/17/18 10 :39 IVPB 250 mls/hr DAILY MAGNUS Administration Ceftriaxone Sodium 1 gm/ 50 mls @ 100 mls/hr 07/17/18 10:00 07/17/18 09:34 Dextrose IVPB 100 mls/hr DAILY MAGNUS Administration Protocol Loratadine 10 mg 07/16/18 15:30 07/17/18 09:33 Claritin - PO 10 mg DAILY MAGNUS Administration Losartan Potassium 100 mg 07/16/18 15:30 07/17/18 09:32 Cozaar - PO 100 mg DAILY MAGNUS Administration Memantine 10 mg 07/16/18 15:30 07/17/18 09:33 Namenda - PO 10 mg DAILY MAGNUS Administration Methylprednisolone Sodium Succinate 40 mg 07/17/18 15:00 Solu-Medrol - IVPUSH Q6H-IV MAGNUS Polyethylene Glycol 17 gm 07/16/18 14:15 07/17/18 10:18 Miralax (For Daily Use) - PO 17 gm DAILY MAGNUS Administration Quetiapine Fumarate 50 mg 07/16/18 15:45 07/17/18 12:03 Seroquel Xr - PO 50 mg DAILY MAGNUS Administration Solifenacin 5 mg 07/16/18 15:30 07/17/18 09:32 Vesicare - PO 5 mg DAILY MAGNUS Administration Tamsulosin HCl 0.4 mg 07/16/18 15:30 07/17/18 09:31 Flomax - PO 0.4 mg DAILY@0830 MAGNUS Administration ASSESSMENT/PLAN: Patient is an 78 year old female with past medical history of BPH, gastritis, HTN, Alzheimer's, Depression/Anxiety, CHF, constipation and prostate cancer s/p radiation,chemotx, presenting with a 2 week history of productive cough and 2 day history of worsening SOB. #Sepsis secondary to community acquired pneumonia -Leukocytosis, improving -Still with fevers overnight -Chest CT revealed new RUL infiltrates -Urine legionella pending -Blood cultures -Flu negative, RSV negative -Continue IV Azithromycin 250mg daily -Continue IV Ceftriaxone 1gm daily -IV NS @75cc/hr -Tylenol PRN for fever #Acute hypoxic respiratory failure likely 2/2 CAP -Continue Bipap PRN -Pulmonology (Dr. Turner) consulted. Recommendations appreciated. -Arformoterol tartrate 1 am neb RBID -IV Methylprednisolone 40mg q6h -supplemental oxygen -follow up CXR -follow chest CT in 6 weeks #MIGDALIA -Cr 1.4 today -likely pre-renal -gentle hydration and will continue monitor renal function #CHF -not in acute exacerbation -will monitor while on fluids #BPH -Continue Tamsulosin 0.4mg daily -Continue oxybutynin #HTN -Continue Losartan 100mg daily #Alzheimer's Disease -Continue Memantine 10mg daily -Continue Donepezil 10mg daily #Constipation -Continue Miralax #Prostate CA -s/p radiation and chemo -follow up with urologist as outpatient #Depression/Anxiety -Continue Quetiapine 50mg daily #FEN -IV NS @75cc/hr -Electrolytes wnl, routine bmp monitoring -Sodium restricted diet #Prophylaxis -Heparin 5000units sq tid #Disposition -full code -transfer to med surg Visit type - Emergency Visit Emergency Visit: Yes ED Registration Date: 07/16/18 Care time: The patient presented to the Emergency Department on the above date and was hospitalized for further evaluation of their emergent condition. - New Patient This patient is new to me today: Yes Date on this admission: 07/17/18 - Critical Care Critical Care patient: No
[2018-07-17] MEDS ORDERED: SODIUM CHLORIDE 1,000 ML IV SCH ×2 (14:45→17:54)
[2018-07-17] MEDS: methylPREDNISolone NA SUCC 40 MG/1 ML VIAL IVPUSH SCH ×2 (14:46→22:05)
--- NOTE | 2018-07-17 14:54 | CONS ---
PULMONARY CONSULTATION DATE OF CONSULTATION: 07/17/2018 REFERRING PHYSICIAN: Christoph Singh MD The patient is an 78-year-old male with past medical history of prostate CA status post RT and chemotherapy, hypertension, Alzheimer dementia, constipation, BPH, history of bronchitis, admitted to [facility] with complaint of 2-week history of increasing shortness of breath, cough productive of clear sputum, and wheezing. Patient apparently had fever prior to admission, unknown exactly how high. Patient presented to the emergency room with the above. In the ER, he was noted to be hypoxemic off O2, desaturated in the 80s. He also had wheezing. He underwent a CT scan of the chest which revealed some atelectatic consolidation in the right middle lobe, a small area of [id number] amount of mediastinal adenopathy, and possible early right upper lobe infiltrate. He was admitted. He was started on BiPAP as well as IV antibiotics and transferred to the floor for further management. He is a nonsmoker. There is no history of occupational exposure to chemicals or fumes. He was born in [place] and moved to the [place] many years ago. There is no history of COPD or asthma in the past. There was no history of hemoptysis, chest pains, or palpitations. There was a history of increasing shortness of breath with minimal exertion according to the daughters. They noted that he had loud noises from his chest when he was breathing. PAST MEDICAL HISTORY: Again includes BPH, gastritis, hypertension, Alzheimer dementia, prostate CA status post RT/chemotherapy, and constipation. REVIEW OF SYSTEMS: Positive shortness of breath. Positive fever. Positive chills. Positive cough. No chest pain. No palpitations. No abdominal pain. No lower extremity edema. CURRENT MEDICATIONS: Include Namenda, VESIcare, aspirin, Aricept, Claritin, albuterol, Seroquel, Zithromax, ceftriaxone, Cozaar, and Flomax. PHYSICAL EXAMINATION: General: The patient is an obese male, well awake, alert, on BiPAP. Vital Signs: He is afebrile; T-max 101.3. Blood pressure 160/100. Respiratory rate is 24. O2 saturation is 100% on 45% O2 on BiPAP. HEENT: Exam is normocephalic, atraumatic. Neck: Supple. Heart: Regular, tachycardic. S1, S2. Chest: Bilateral wheezes throughout. Abdomen: Soft. Bowel sounds are positive. Extremities: No cyanosis or edema. LABORATORY DATA: WBC is 11.0, hemoglobin 13.8, hematocrit 40.4, with a platelet count of 181,000; polys 84, lymphs 5, and neutrophils 9.3. INR is 1.09. Blood gases showed pH 7.40, pCO2 of 42, a pO2 of 52, bicarbonate of 26, and saturation at 91. That was on unknown quantity of oxygen. Chemistries: BUN 23, creatinine 1.4. CK is 1779. Chest CT: Questionable small, mild increased markings in the right upper lobes. There is mild consolidation, atelectasis of right middle lobe, and prominent mediastinal nodes. IMPRESSION: 1. Acute hypoxemic respiratory failure, likely secondary to pneumonia, community acquired. 2. Possible bronchitis. 3. History of prostate cancer status post radiotherapy and chemotherapy. 4. Hypertension. 5. Dementia. 6. Mediastinal adenopathy, likely reactive. 7. Acute kidney injury. PLAN: IV antibiotics, short course of steroids, inhaled bronchodilators, BiPAP as needed to maintain O2 saturation and reduce the work of breathing. Supplemental O2. Obtain cultures. IV fluids. Mother electrolytes. Obtain followup chest x-rays. Cold agglutinins, legionella ER antigen. MYLES MCCABE M.D. [id number]
--- NOTE | 2018-07-17 15:38 | PN ---
Teaching Attending Note Name of Resident: Brittney Kemp ATTENDING PHYSICIAN STATEMENT I saw and evaluated the patient. I reviewed the resident's note and discussed the case with the resident. I agree with the resident's findings and plan as documented. SUBJECTIVE: Patient confused. He appears comfortable on BiPAP. OBJECTIVE: Vital Signs Period Temp Pulse Resp BP Sys/Melgar Pulse Ox Last 24 Hr 97.9 F-907.8 F 89-111 16-30 116-169/57-100 95-100 HEART: S1S2, tachycardic LUNGS: Scattered wheezes ABDOMEN: Soft, non-tender, non-distended, normal BS EXTREMITIES: No edema Laboratory Results - last 24 hr 07/16/18 07/16/18 07/16/18 13:31 15:35 16:32 WBC RBC Hgb Hct MCV MCH MCHC RDW Plt Count MPV Absolute Neuts (auto) Neutrophils % Lymphocytes % Monocytes % Eosinophils % Basophils % Nucleated RBC % Anticoagulation Therapy No Result Required. Puncture Site Right radial ABG pH 7.40 ABG pCO2 at Pt Temp 42.4 ABG pO2 at Pt Temp 62.7 L ABG HCO3 26.8 ABG O2 Sat (Measured) 91.3 L ABG O2 Content No Result Required. ABG Base Excess 2.5 H Darius Test Positive O2 Delivery Device No Result Required. Oxygen Flow Rate Nasal Vent Mode No Result Required. Vent Rate No Result Required. Mechanical Rate No Result Required. Pressure Support Vent No Result Required. Sodium Potassium Chloride Carbon Dioxide Anion Gap BUN Creatinine Creat Clearance w eGFR Random Glucose Hemoglobin A1c % Lactic Acid 1.2 Calcium Phosphorus Magnesium Total Bilirubin AST ALT Alkaline Phosphatase Creatine Kinase Creatine Kinase Index CK-MB (CK-2) Total Protein Albumin RSV Rapid Negative 07/17/18 07/17/18 07/17/18 05:30 05:30 05:30 WBC 11.0 H RBC 4.38 Hgb 13.8 Hct 40.4 MCV 92.3 MCH 31.5 MCHC 34.2 RDW 14.0 Plt Count 181 MPV 8.9 Absolute Neuts (auto) 9.3 H Neutrophils % 84.1 H Lymphocytes % 5.5 L Monocytes % 9.7 Eosinophils % 0.5 Basophils % 0.2 Nucleated RBC % 0 Anticoagulation Therapy Puncture Site ABG pH ABG pCO2 at Pt Temp ABG pO2 at Pt Temp ABG HCO3 ABG O2 Sat (Measured) ABG O2 Content ABG Base Excess Darius Test O2 Delivery Device Oxygen Flow Rate Vent Mode Vent Rate Mechanical Rate Pressure Support Vent Sodium 140 Potassium 4.3 Chloride 104 Carbon Dioxide 29 Anion Gap 7 L BUN 23 H Creatinine 1.4 H Creat Clearance w eGFR 48.76 Random Glucose 113 H Hemoglobin A1c % 5.7 Lactic Acid Calcium 8.2 L Phosphorus 4.6 Magnesium 1.8 Total Bilirubin 0.7 AST 55 H ALT 41 Alkaline Phosphatase 91 Creatine Kinase Creatine Kinase Index CK-MB (CK-2) Total Protein 6.8 Albumin 3.5 RSV Rapid 07/17/18 09:05 WBC RBC Hgb Hct MCV MCH MCHC RDW Plt Count MPV Absolute Neuts (auto) Neutrophils % Lymphocytes % Monocytes % Eosinophils % Basophils % Nucleated RBC % Anticoagulation Therapy Puncture Site ABG pH ABG pCO2 at Pt Temp ABG pO2 at Pt Temp ABG HCO3 ABG O2 Sat (Measured) ABG O2 Content ABG Base Excess Darius Test O2 Delivery Device Oxygen Flow Rate Vent Mode Vent Rate Mechanical Rate Pressure Support Vent Sodium Potassium Chloride Carbon Dioxide Anion Gap BUN Creatinine Creat Clearance w eGFR Random Glucose Hemoglobin A1c % Lactic Acid Calcium Phosphorus Magnesium Total Bilirubin AST ALT Alkaline Phosphatase Creatine Kinase 1779 H Creatine Kinase Index 1.3 CK-MB (CK-2) 24.2 H Total Protein Albumin RSV Rapid Current Medications Generic Name Dose Route Start Last Admin Trade Name Freq PRN Reason Stop Dose Admin Acetaminophen 650 mg 07/16/18 14:02 Tylenol - PO Q6H PRN FEVER Albuterol Sulfate 1 amp 07/16/18 16:21 07/17/18 12:07 Ventolin 0.083% Nebulizer Soln - NEB 1 amp Q4H PRN Administration SHORT OF BREATH/WHEEZING Arformoterol Tartrate 1 amp 07/17/18 20:00 Brovana (Restricted To Pulmonology/Resp) - NEB RBID MAGNUS Aspirin 81 mg 07/16/18 15:15 07/17/18 09:32 Asa - PO 81 mg DAILY MAGNUS Administration Citalopram Hydrobromide 10 mg 07/16/18 15:45 07/17/18 09:33 Celexa - PO 10 mg DAILY MAGNUS Administration Donepezil HCl 10 mg 07/17/18 10:00 07/17/18 09:33 Aricept - PO 10 mg DAILY MAGNUS Administration Heparin Sodium (Porcine) 5,000 unit 07/16/18 22:00 07/17/18 14:42 Heparin - SQ 5,000 unit TID MAGNUS Administration Azithromycin 250 mg/ Dextrose 250 mls @ 250 mls/hr 07/17/18 10:00 07/17/18 10 :39 IVPB 250 mls/hr DAILY MAGNUS Administration Ceftriaxone Sodium 1 gm/ 50 mls @ 100 mls/hr 07/17/18 10:00 07/17/18 09:34 Dextrose IVPB 100 mls/hr DAILY MAGNUS Administration Protocol Sodium Chloride 1,000 mls @ 75 mls/hr 07/17/18 14:45 07/17/18 14:46 Normal Saline - IV 75 mls/hr ASDIR MAGNUS Administration Loratadine 10 mg 07/16/18 15:30 07/17/18 09:33 Claritin - PO 10 mg DAILY MAGNUS Administration Losartan Potassium 100 mg 07/16/18 15:30 07/17/18 09:32 Cozaar - PO 100 mg DAILY MAGNUS Administration Memantine 10 mg 07/16/18 15:30 07/17/18 09:33 Namenda - PO 10 mg DAILY MAGNUS Administration Methylprednisolone Sodium Succinate 40 mg 07/17/18 15:00 07/17/18 14:46 Solu-Medrol - IVPUSH 40 mg Q6H-IV MAGNUS Administration Polyethylene Glycol 17 gm 07/16/18 14:15 07/17/18 10:18 Miralax (For Daily Use) - PO 17 gm DAILY MAGNUS Administration Quetiapine Fumarate 50 mg 07/16/18 15:45 07/17/18 12:03 Seroquel Xr - PO 50 mg DAILY MAGNUS Administration Solifenacin 5 mg 07/16/18 15:30 07/17/18 09:32 Vesicare - PO 5 mg DAILY MAGNUS Administration Tamsulosin HCl 0.4 mg 07/16/18 15:30 07/17/18 09:31 Flomax - PO 0.4 mg DAILY@0830 MAGNUS Administration ASSESSMENT AND PLAN: This is an 78 year old man with a history of HTN, BPH, gastritis, prostate cancer, constipation, Alzheimer's dementia, depression, anxiety who presented to the ED with fever and a productive cough. 1. Sepsis (fever, tachycardia, leukocytosis) and acute hypoxic respiratory failure secondary to pneumonia - Continue ceftriaxone, Zithromax, albuterol nebs as needed - SoluMedrol, Brovana started - Continue BiPAP - IV fluid - Influenza A/B negative - RSV negative - Urine pneumonia Ag negative - Blood cultures negative after 24 hours 2. Rhabdomyolysis - CK increasing - Increase IV fluid - Lipitor held 3. Acute kidney injury - Hold Lasix, Cozaar 4. HTN - Hold Cozaar, Lasix secondary to MIGDALIA 5. Hyperlipidemia - Hold Lipitor secondary to rhabdomyolysis 6. BPH, prostate cancer - Continue Flomax, oxybutynin 7. Gastritis 8. Chronic constipation - Continue Miralax 9. Alzheimer's dementia, depression, anxiety - Continue Aricept, Namenda, Celexa, Seroquel
[2018-07-17] MEDS: ARFORMOTEROL TARTRATE 15 MCG/2 ML VIAL NEB SCH (21:15)
[2018-07-18] MEDS: methylPREDNISolone NA SUCC 40 MG/1 ML VIAL IVPUSH SCH ×4 (03:38→21:06)
[2018-07-18] MEDS: HEPARIN NA (PORCINE) 5,000 UNITS/ML 1ML VIAL SQ SCH ×3 (06:44→21:08)
[2018-07-18 06:53] LABS: BASO % 0.1 % (0-2.0); HEMATOCRIT 39.8 % (35.4-49); HEMOGLOBIN 13.3 GM/dL (11.7-16.9); LYMPH % 7.2 % (8-40); MCH 31.2 pg (25.7-33.7); MCHC 33.6 g/dl (32.0-35.9); MEAN PLT VOLUME 8.9 fl (7.5-11.1); MONO % 2.7 % (3.8-10.2); PLATELET COUNT 195 K/MM3 (134-434); RBC 4.28 M/mm3 (4.00-5.60); RDW 13.6 % (11.9-15.9); WHITE BLOOD COUNT 8.1 K/mm3 (4.0-10.0)
[2018-07-18 07:17] LABS: ANION GAP 7 MMOL/L (8-16); BLOOD UREA NITROGEN 34 mg/dL (7-18); CALCIUM 7.9 mg/dL (8.5-10.1); CHLORIDE 109 mmol/L (98-107); CO2 26 mmol/L (21-32); CREATININE 1.1 mg/dL (0.55-1.3); GLUCOSE,RANDOM 155 mg/dL (74-106); MAGNESIUM 2.4 mg/dL (1.8-2.4); PHOSPHOROUS 2.9 mg/dL (2.5-4.9); POTASSIUM 4.1 mmol/L (3.5-5.1); SODIUM 142 mmol/L (136-145)
--- NOTE | 2018-07-18 07:58 | PN ---
Teaching Attending Note Name of Resident: Brittney Kemp ATTENDING PHYSICIAN STATEMENT I saw and evaluated the patient. I reviewed the resident's note and discussed the case with the resident. I agree with the resident's findings and plan as documented. SUBJECTIVE: Feels improved less SOB OBJECTIVE: Vital Signs Temperature 97.8 F 07/18/18 05:00 Pulse Rate 82 07/18/18 05:00 Respiratory Rate 20 07/18/18 05:00 Blood Pressure 151/80 07/18/18 05:00 O2 Sat by Pulse Oximetry (%) 99 07/18/18 05:30 Elderly man not in distress, feels improved HEENT: Mm moist, no anemia, PERRLA EPOMI NECK: No JVd No Bruit CHEST: diffuse rhonci ABD: No distention, on tender Bs + EXT: No trian afeet, no calf tenderness, Pulses + AREA COUNSELOR: AOX3 non focal CBC, BMP 07/18/18 05:30 07/18/18 05:30 Active Medications Acetaminophen (Tylenol -) 650 mg PO Q6H PRN PRN Reason: FEVER Albuterol Sulfate (Ventolin 0.083% Nebulizer Soln -) 1 amp NEB Q4H PRN PRN Reason: SHORT OF BREATH/WHEEZING Last Admin: 07/17/18 16:57 Dose: 1 amp Arformoterol Tartrate (Brovana (Restricted To Pulmonology/Resp) -) 1 amp NEB RBID [facility] Last Admin: 07/17/18 21:15 Dose: 1 amp Aspirin (Asa -) 81 mg PO DAILY [facility] Last Admin: 07/17/18 09:32 Dose: 81 mg Citalopram Hydrobromide (Celexa -) 10 mg PO DAILY [facility] Last Admin: 07/17/18 09:33 Dose: 10 mg Donepezil HCl (Aricept -) 10 mg PO DAILY [facility] Last Admin: 07/17/18 09:33 Dose: 10 mg Heparin Sodium (Porcine) (Heparin -) 5,000 unit SQ TID [facility] Last Admin: 07/18/18 06:44 Dose: 5,000 unit Azithromycin 250 mg/ Dextrose 250 mls @ 250 mls/hr IVPB DAILY [facility] Last Admin: 07/17/18 10:39 Dose: 250 mls/hr Ceftriaxone Sodium 1 gm/ (Dextrose) 50 mls @ 100 mls/hr IVPB DAILY [facility]; Protocol Last Admin: 07/17/18 09:34 Dose: 100 mls/hr Sodium Chloride (Normal Saline -) 1,000 mls @ 100 mls/hr IV ASDIR [facility] Last Admin: 07/17/18 22:06 Dose: 100 mls/hr Loratadine (Claritin -) 10 mg PO DAILY [facility] Last Admin: 07/17/18 09:33 Dose: 10 mg Memantine (Namenda -) 10 mg PO DAILY [facility] Last Admin: 07/17/18 09:33 Dose: 10 mg Methylprednisolone Sodium Succinate (Solu-Medrol -) 40 mg IVPUSH Q6H-IV [facility] Last Admin: 07/18/18 03:38 Dose: 40 mg Polyethylene Glycol (Miralax (For Daily Use) -) 17 gm PO DAILY [facility] Last Admin: 07/17/18 10:18 Dose: 17 gm Quetiapine Fumarate (Seroquel Xr -) 50 mg PO DAILY [facility] Last Admin: 07/17/18 12:03 Dose: 50 mg Solifenacin (Vesicare -) 5 mg PO DAILY [facility] Last Admin: 07/17/18 09:32 Dose: 5 mg Tamsulosin HCl (Flomax -) 0.4 mg PO DAILY@0830 [facility] Last Admin: 07/17/18 09:31 Dose: 0.4 mg ASSESSMENT AND PLAN:78 year old man with a history of HTN, BPH, gastritis, prostate cancer, constipation, Alzheimer's dementia, depression, anxiety who presented to the ED with fever and a productive cough. Problem List - Problems (1) Pneumonia Assessment/Plan: On IV Ceftriaxone and Azithromycine will switch to PO augmentin and Z pack f/u CBc, fever curve Code(s): J18.9 - PNEUMONIA, UNSPECIFIED ORGANISM Qualifiers: Pneumonia type: due to unspecified organism Laterality: unspecified laterality Lung location: unspecified part of lung Qualified Code(s): J18.9 - Pneumonia, unspecified organism (2) Acute hypoxemic respiratory failure Assessment/Plan: Due to pneumonia and recative airways dises now on 2 Ltr NC cont Duoneb, IV steroids and Pulmonary consut Code(s): J96.01 - ACUTE RESPIRATORY FAILURE WITH HYPOXIA (3) MIGDALIA (acute kidney injury) Assessment/Plan: improving F/U BMP Code(s): N17.9 - ACUTE KIDNEY FAILURE, UNSPECIFIED (4) Dementia Assessment/Plan: chronic resume all home meds Code(s): F03.90 - UNSPECIFIED DEMENTIA WITHOUT BEHAVIORAL DISTURBANCE
[2018-07-18] MEDS: TAMSULOSIN HCL 0.4 MG CAP PO SCH (08:38)
[2018-07-18] MEDS: ARFORMOTEROL TARTRATE 15 MCG/2 ML VIAL NEB SCH (09:02)
[2018-07-18] MEDS ORDERED: PT OWN MED DRAWER 7, Y5N ONE (09:12)
[2018-07-18] MEDS ORDERED: DEXTROSE 5%-WATER - 50 ML IVPB ONE (09:13)
[2018-07-18] MEDS ORDERED: cefTRIAXone SODIUM 1 GM VIAL ONE (09:13)
[2018-07-18] MEDS: SODIUM CHLORIDE 1,000 ML IV SCH (09:21)
[2018-07-18] MEDS: MEMANTINE HCL 10 MG TABLET (FP) PO SCH (09:22)
[2018-07-18] MEDS: DONEPEZIL HCL 10 MG TABLET (FP) PO SCH (09:22)
[2018-07-18] MEDS: SOLIFENACIN SUCCINATE 5 MG TAB (FP) PO SCH (09:22)
[2018-07-18] MEDS: LORATADINE 10 MG TABLET PO SCH (09:23)
[2018-07-18] MEDS: CITALOPRAM HYDROBROMIDE 10 MG TABLET (FP) PO SCH (09:23)
[2018-07-18] MEDS: ASPIRIN 81 MG CHEWABLE TABLETS PO SCH (09:23)
[2018-07-18] MEDS: CEFTRIAXONE 1 GM in DEXTROSE 5%-WATER - 50 ML IVPB SCH (09:25)
[2018-07-18] MEDS ORDERED: PATIENT'S OWN MEDICATION (NON-FORMULARY) (Polyethylene Glycol 3350 [Polyethylene Glycol 33 PO SCH (10:00)
[2018-07-18] MEDS: POLYETHYLENE GLYCOL 3350 119 GM BTL PO SCH (10:00)
[2018-07-18] MEDS: AZITHROMYCIN IVPB 250 MG in DEXTROSE 5%-WATER - 250 ML IVPB SCH (11:33)
--- NOTE | 2018-07-18 14:17 | PN ---
Physical Exam: SUBJECTIVE: Patient seen and examined at bedside this morning. No acute events overnight. Afebrile overnight. Patient on bipap. This morning patient saturating at 90s on nasal cannula. Patient denies fever, chills, headache, dizziness, chest pain, abdominal pain, diarrhea, urinary symptoms. OBJECTIVE: Vital Signs Temperature 98.5 F 07/18/18 13:38 Pulse Rate 89 07/18/18 13:38 Respiratory Rate 18 07/18/18 13:38 Blood Pressure 108/51 L 07/18/18 13:38 O2 Sat by Pulse Oximetry (%) 99 07/18/18 09:01 GENERAL: The patient is awake, alert, and fully oriented, on NC HEAD: Normal with no signs of trauma. EYES: PERRLA, EOMI, sclera anicteric, conjunctiva clear. ENT:oropharynx clear without exudates, moist mucous membranes. NECK: Trachea midline, full range of motion, supple. LUNGS: +Scattered wheezes, diffuse rhonchi bilaterally HEART: RRR, S1, S2 without murmur, rub or gallop. ABDOMEN: Soft, nontender, nondistended, normoactive bowel sounds. EXTREMITIES: 2+ pulses, warm, well-perfused, no edema. NEUROLOGICAL: Cranial nerves II through XII grossly intact. Normal speech, gait not observed. PSYCH: Normal mood, normal affect. SKIN: Warm, dry, normal turgor, no rashes or lesions noted Laboratory Results - last 24 hr 07/18/18 07/18/18 05:30 05:30 WBC 8.1 RBC 4.28 Hgb 13.3 Hct 39.8 MCV 93.0 MCH 31.2 MCHC 33.6 RDW 13.6 Plt Count 195 MPV 8.9 Absolute Neuts (auto) 7.3 Neutrophils % 90.0 H Lymphocytes % 7.2 L D Monocytes % 2.7 L Eosinophils % 0.0 D Basophils % 0.1 Nucleated RBC % 0 Sodium 142 Potassium 4.1 Chloride 109 H Carbon Dioxide 26 Anion Gap 7 L BUN 34 H Creatinine 1.1 Creat Clearance w eGFR 64.41 Random Glucose 155 H Calcium 7.9 L Phosphorus 2.9 Magnesium 2.4 Creatine Kinase 724 H Creatine Kinase Index 1.3 CK-MB (CK-2) 10.0 H Active Medications Generic Name Dose Route Start Last Admin Trade Name Freq PRN Reason Stop Dose Admin Acetaminophen 650 mg 07/16/18 14:02 Tylenol - PO Q6H PRN FEVER Albuterol Sulfate 1 amp 07/16/18 16:21 07/17/18 16:57 Ventolin 0.083% Nebulizer Soln - NEB 1 amp Q4H PRN Administration SHORT OF BREATH/WHEEZING Amoxicillin/Clavulanate Potassium 1 tab 07/18/18 17:30 Augmentin - 875mg Tablet PO BID@0800,1730 [facility] Arformoterol Tartrate 1 amp 07/17/18 20:00 07/18/18 09:02 Brovana (Restricted To Pulmonology/Resp) - NEB 1 amp RBID [facility] Administration Aspirin 81 mg 07/16/18 15:15 07/18/18 09:23 Asa - PO 81 mg DAILY [facility] Administration Azithromycin 500 mg 07/19/18 10:00 Zithromax - PO DAILY [facility] Citalopram Hydrobromide 10 mg 07/16/18 15:45 07/18/18 09:23 Celexa - PO 10 mg DAILY [facility] Administration Donepezil HCl 10 mg 07/17/18 10:00 07/18/18 09:22 Aricept - PO 10 mg DAILY [facility] Administration Heparin Sodium (Porcine) 5,000 unit 07/16/18 22:00 07/18/18 13:57 Heparin - SQ 5,000 unit TID [facility] Administration Sodium Chloride 1,000 mls @ 75 mls/hr 07/18/18 08:55 07/18/18 09:21 Normal Saline - IV 75 mls/hr ASDIR [facility] Administration Loratadine 10 mg 07/16/18 15:30 07/18/18 09:23 Claritin - PO 10 mg DAILY [facility] Administration Memantine 10 mg 07/16/18 15:30 07/18/18 09:22 Namenda - PO 10 mg DAILY [facility] Administration Methylprednisolone Sodium Succinate 40 mg 07/17/18 15:00 07/18/18 08:39 Solu-Medrol - IVPUSH 40 mg Q6H-IV [facility] Administration Polyethylene Glycol 17 gm 07/16/18 14:15 07/18/18 10:00 Miralax (For Daily Use) - PO 17 gm DAILY [facility] Administration Quetiapine Fumarate 50 mg 07/16/18 15:45 07/18/18 09:24 Seroquel Xr - PO 50 mg DAILY [facility] Administration Solifenacin 5 mg 07/16/18 15:30 07/18/18 09:22 Vesicare - PO 5 mg DAILY [facility] Administration Tamsulosin HCl 0.4 mg 07/16/18 15:30 07/18/18 08:38 Flomax - PO 0.4 mg DAILY@0830 [facility] Administration ASSESSMENT/PLAN: Patient is an 78 year old female with past medical history of BPH, gastritis, HTN, Alzheimer's, Depression/Anxiety, CHF, constipation and prostate cancer s/p radiation,chemotx, presenting with a 2 week history of productive cough and 2 day history of worsening SOB. #Sepsis secondary to community acquired pneumonia -afebrile, leukocytosis resolved -Chest CT revealed new RUL infiltrates -Urine legionella negative -Blood cultures -Flu negative, RSV negative -Will switch IV to PO Augmentin 875mg BID and Azithromycin 500mg daily -IV NS @75cc/hr -Tylenol PRN for fever #Acute hypoxic respiratory failure likely 2/2 CAP -Continue Bipap PRN -Pulmonology (Dr. Turner) consulted. Recommendations appreciated. -Arformoterol tartrate 1 am neb RBID -IV Methylprednisolone 40mg q6h -supplemental oxygen -follow up CXR -follow chest CT in 6 weeks #MIGDALIA, resolved -Cr 1.1 today -likely pre-renal -will continue monitor renal function #Elevated CK -gentle Iv hydration -CK improving -will continue to monitor #CHF -not in acute exacerbation -will monitor while on fluids #BPH -Continue Tamsulosin 0.4mg daily -Continue oxybutynin #HTN -Continue Losartan 100mg daily #Alzheimer's Disease -Continue Memantine 10mg daily -Continue Donepezil 10mg daily #Constipation -Continue Miralax #Prostate CA -s/p radiation and chemo -follow up with urologist as outpatient #Depression/Anxiety -Continue Quetiapine 50mg daily #FEN -IV NS @75cc/hr -Electrolytes wnl, routine bmp monitoring -Sodium restricted diet #Prophylaxis -Heparin 5000units sq tid #Disposition -full code -transfer to med surg Visit type - Emergency Visit Emergency Visit: Yes ED Registration Date: 07/16/18 Care time: The patient presented to the Emergency Department on the above date and was hospitalized for further evaluation of their emergent condition. - New Patient This patient is new to me today: No - Critical Care Critical Care patient: No
--- NOTE | 2018-07-18 16:07 | PN ---
Progress Note, Physician History of Present Illness: pulmonary alert,feeling better,less dyspneic - Current Medication List Current Medications: Active Medications Acetaminophen (Tylenol -) 650 mg PO Q6H PRN PRN Reason: FEVER Albuterol Sulfate (Ventolin 0.083% Nebulizer Soln -) 1 amp NEB Q4H PRN PRN Reason: SHORT OF BREATH/WHEEZING Last Admin: 07/17/18 16:57 Dose: 1 amp Amoxicillin/Clavulanate Potassium (Augmentin - 875mg Tablet) 1 tab PO BID@0800, 1730 [facility] Arformoterol Tartrate (Brovana (Restricted To Pulmonology/Resp) -) 1 amp NEB RBID [facility] Last Admin: 07/18/18 09:02 Dose: 1 amp Aspirin (Asa -) 81 mg PO DAILY [facility] Last Admin: 07/18/18 09:23 Dose: 81 mg Azithromycin (Zithromax -) 500 mg PO DAILY [facility] Citalopram Hydrobromide (Celexa -) 10 mg PO DAILY [facility] Last Admin: 07/18/18 09:23 Dose: 10 mg Donepezil HCl (Aricept -) 10 mg PO DAILY [facility] Last Admin: 07/18/18 09:22 Dose: 10 mg Heparin Sodium (Porcine) (Heparin -) 5,000 unit SQ TID [facility] Last Admin: 07/18/18 13:57 Dose: 5,000 unit Sodium Chloride (Normal Saline -) 1,000 mls @ 75 mls/hr IV ASDIR [facility] Last Admin: 07/18/18 09:21 Dose: 75 mls/hr Loratadine (Claritin -) 10 mg PO DAILY [facility] Last Admin: 07/18/18 09:23 Dose: 10 mg Memantine (Namenda -) 10 mg PO DAILY [facility] Last Admin: 07/18/18 09:22 Dose: 10 mg Methylprednisolone Sodium Succinate (Solu-Medrol -) 40 mg IVPUSH Q6H-IV [facility] Last Admin: 07/18/18 15:23 Dose: 40 mg Polyethylene Glycol (Miralax (For Daily Use) -) 17 gm PO DAILY [facility] Last Admin: 07/18/18 10:00 Dose: 17 gm Quetiapine Fumarate (Seroquel Xr -) 50 mg PO DAILY [facility] Last Admin: 07/18/18 09:24 Dose: 50 mg Solifenacin (Vesicare -) 5 mg PO DAILY [facility] Last Admin: 07/18/18 09:22 Dose: 5 mg Tamsulosin HCl (Flomax -) 0.4 mg PO DAILY@0830 [facility] Last Admin: 07/18/18 08:38 Dose: 0.4 mg - Objective Vital Signs: Vital Signs Temperature 98.5 F 07/18/18 13:38 Pulse Rate 89 07/18/18 13:38 Respiratory Rate 18 07/18/18 13:38 Blood Pressure 108/51 L 07/18/18 13:38 O2 Sat by Pulse Oximetry (%) 96 07/18/18 15:01 Constitutional: Yes: Well Nourished, Calm Eyes: Yes: WNL HENT: Yes: WNL Neck: Yes: WNL Cardiovascular: Yes: Regular Rate and Rhythm, S1, S2 Respiratory: Yes: Wheezes (few wheezes) Gastrointestinal: Yes: Normal Bowel Sounds, Soft Extremities: Yes: WNL Edema: No Labs: CBC, BMP 07/18/18 05:30 07/18/18 05:30 INR, PTT INR 1.09 (0.83-1.09) 07/16/18 11:00 Problem List - Problems (1) Acute hypoxemic respiratory failure Code(s): J96.01 - ACUTE RESPIRATORY FAILURE WITH HYPOXIA (2) Pneumonia Code(s): J18.9 - PNEUMONIA, UNSPECIFIED ORGANISM Qualifiers: Pneumonia type: due to unspecified organism Laterality: unspecified laterality Lung location: unspecified part of lung Qualified Code(s): J18.9 - Pneumonia, unspecified organism (3) URI (upper respiratory infection) Code(s): J06.9 - ACUTE UPPER RESPIRATORY INFECTION, UNSPECIFIED Qualifiers: URI type: unspecified URI Qualified Code(s): J06.9 - Acute upper respiratory infection, unspecified (4) MIGDALIA (acute kidney injury) Code(s): N17.9 - ACUTE KIDNEY FAILURE, UNSPECIFIED (5) Mediastinal adenopathy Code(s): R59.0 - LOCALIZED ENLARGED LYMPH NODES Assessment/Plan IMP ACUTE HYPOXEMIC RESPIRATORY FAILURE IMPROVING LIKELY PNEUMONIA H/O BRONCHITIS PROSTATE CA HTN DEMENTIA MEDIASTINAL ADENOPATHY LIKELY REACTIVE MIGDALIA PLAN CONTINUE IV ABX STEROIDS INHALED BRONCHODILATORS NIPPV NEEDED SUPPLEMENTAL O2 MONITOR LYRES,RENAL FUNCTION F/U CHEST X-RAYS F/U CHEST CT [address] MCCABE Problem List - Problems (1) Acute hypoxemic respiratory failure Code(s): J96.01 - ACUTE RESPIRATORY FAILURE WITH HYPOXIA (2) Pneumonia Code(s): J18.9 - PNEUMONIA, UNSPECIFIED ORGANISM Qualifiers: Pneumonia type: due to unspecified organism Laterality: unspecified laterality Lung location: unspecified part of lung Qualified Code(s): J18.9 - Pneumonia, unspecified organism (3) URI (upper respiratory infection) Code(s): J06.9 - ACUTE UPPER RESPIRATORY INFECTION, UNSPECIFIED Qualifiers: URI type: unspecified URI Qualified Code(s): J06.9 - Acute upper respiratory infection, unspecified (4) MIGDALIA (acute kidney injury) Code(s): N17.9 - ACUTE KIDNEY FAILURE, UNSPECIFIED (5) Mediastinal adenopathy Code(s): R59.0 - LOCALIZED ENLARGED LYMPH NODES
[2018-07-18] MEDS: AMOX TR/POT CLAV 875MG/125MG TABLETS (FP) PO SCH (18:11)
[2018-07-18] MEDS ORDERED: ACETAMINOPHEN 325 MG TABLET (FP) PO PRN (20:13)
[2018-07-18] MEDS ORDERED: ALBUTEROL SO4 0.083% IH SOL 2.5 MG/3 ML VIAL.NEB. NEB PRN (20:13)
[2018-07-19] MEDS: methylPREDNISolone NA SUCC 40 MG/1 ML VIAL IVPUSH SCH ×2 (02:50→10:01)
[2018-07-19] MEDS: HEPARIN NA (PORCINE) 5,000 UNITS/ML 1ML VIAL SQ SCH ×3 (05:35→21:23)
[2018-07-19] MEDS: ARFORMOTEROL TARTRATE 15 MCG/2 ML VIAL NEB SCH ×2 (08:12→21:00)
--- NOTE | 2018-07-19 08:15 | PN ---
Progress Note, Physician Chief Complaint: looks anxious and agitated - Current Medication List Current Medications: Active Medications Acetaminophen (Tylenol -) 650 mg PO Q6H PRN PRN Reason: FEVER Albuterol Sulfate (Ventolin 0.083% Nebulizer Soln -) 1 amp NEB Q4H PRN PRN Reason: SHORT OF BREATH/WHEEZING Amoxicillin/Clavulanate Potassium (Augmentin - 875mg Tablet) 1 tab PO BID@0800, 1730 [facility] Last Admin: 07/18/18 18:11 Dose: 1 tab Arformoterol Tartrate (Brovana (Restricted To Pulmonology/Resp) -) 1 amp NEB RBID [facility] Last Admin: 07/19/18 08:12 Dose: 1 amp Aspirin (Asa -) 81 mg PO DAILY [facility] Azithromycin (Zithromax -) 500 mg PO DAILY [facility] Citalopram Hydrobromide (Celexa -) 10 mg PO DAILY [facility] Donepezil HCl (Aricept -) 10 mg PO DAILY [facility] Heparin Sodium (Porcine) (Heparin -) 5,000 unit SQ TID [facility] Last Admin: 07/19/18 05:35 Dose: Not Given Sodium Chloride (Normal Saline -) 1,000 mls @ 75 mls/hr IV ASDIR [facility] Last Admin: 07/18/18 09:21 Dose: 75 mls/hr Loratadine (Claritin -) 10 mg PO DAILY [facility] Memantine (Namenda -) 10 mg PO DAILY [facility] Methylprednisolone Sodium Succinate (Solu-Medrol -) 40 mg IVPUSH Q6H-IV [facility] Last Admin: 07/19/18 02:50 Dose: 40 mg Polyethylene Glycol (Miralax (For Daily Use) -) 17 gm PO DAILY [facility] Quetiapine Fumarate (Seroquel Xr -) 50 mg PO DAILY [facility] Solifenacin (Vesicare -) 5 mg PO DAILY [facility] Tamsulosin HCl (Flomax -) 0.4 mg PO DAILY@0830 [facility] - Objective Vital Signs: Vital Signs Temperature 98.2 F 07/19/18 04:00 Pulse Rate 87 07/19/18 04:00 Respiratory Rate 20 07/19/18 04:00 Blood Pressure 165/76 07/19/18 04:00 O2 Sat by Pulse Oximetry (%) 96 07/18/18 21:00 Elderly man not in distress, feels improved HEENT: Mm moist, no anemia, PERRLA EPOMI NECK: No JVd No Bruit CHEST: minimal diffuse rhonci ABD: No distention, on tender Bs + EXT: No edema feet, no calf tenderness, 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 Labs: CBC, BMP 07/18/18 05:30 07/18/18 05:30 INR, PTT INR 1.09 (0.83-1.09) 07/16/18 11:00 Problem List - Problems (1) Pneumonia Assessment/Plan: switched to PO augmentin and Z pack f/u CBc, fever curve Code(s): J18.9 - PNEUMONIA, UNSPECIFIED ORGANISM Qualifiers: Pneumonia type: due to unspecified organism Laterality: unspecified laterality Lung location: unspecified part of lung Qualified Code(s): J18.9 - Pneumonia, unspecified organism (2) Acute hypoxemic respiratory failure Assessment/Plan: Due to pneumonia and reactive airways dises now on 2 Ltr NC cont Duoneb, IV steroids, will evalute pre ad Post exercise O2 saturation. Code(s): J96.01 - ACUTE RESPIRATORY FAILURE WITH HYPOXIA (3) MIGDALIA (acute kidney injury) Assessment/Plan: improving F/U BMP Code(s): N17.9 - ACUTE KIDNEY FAILURE, UNSPECIFIED (4) Dementia Assessment/Plan: chronic resume all home meds Code(s): F03.90 - UNSPECIFIED DEMENTIA WITHOUT BEHAVIORAL DISTURBANCE (5) Mediastinal adenopathy Assessment/Plan: most likely reactive Code(s): R59.0 - LOCALIZED ENLARGED LYMPH NODES (6) HTN (hypertension) Assessment/Plan: Resume home medications. Code(s): I10 - ESSENTIAL (PRIMARY) HYPERTENSION
[2018-07-19] MEDS: TAMSULOSIN HCL 0.4 MG CAP PO SCH (09:09)
[2018-07-19] MEDS: AMOX TR/POT CLAV 875MG/125MG TABLETS (FP) PO SCH ×2 (09:09→17:52)
[2018-07-19] MEDS ORDERED: PT OWN MED DRAWER 7, Y5N ONE (09:59)
[2018-07-19] MEDS ORDERED: SOLIFENACIN SUCCINATE 5 MG TAB (FP) PO SCH (10:00)
[2018-07-19] MEDS: AZITHROMYCIN 250 MG TABLET PO SCH (10:02)
[2018-07-19] MEDS: DONEPEZIL HCL 10 MG TABLET (FP) PO SCH (10:02)
[2018-07-19] MEDS: ASPIRIN 81 MG CHEWABLE TABLETS PO SCH (10:02)
[2018-07-19] MEDS: CITALOPRAM HYDROBROMIDE 10 MG TABLET (FP) PO SCH (10:02)
[2018-07-19] MEDS: LORATADINE 10 MG TABLET PO SCH (10:02)
[2018-07-19] MEDS: MEMANTINE HCL 10 MG TABLET (FP) PO SCH (10:03)
[2018-07-19] MEDS: SODIUM CHLORIDE 1,000 ML IV SCH (10:04)
--- NOTE | 2018-07-19 13:01 | PN ---
Progress Note (short form) - Note Progress Note: Still with wheezing and cough, but improving. No acute events overnight. Intake & Output 07/16/18 07/17/18 07/18/18 07/19/18 23:59 23:59 23:59 23:59 Intake Total 1005 2350 0 Output Total 200 600 Balance 805 1750 0 Weight 160 lb 160 lb 156 lb 155 lb 3.2 oz Last Vital Signs Temp Pulse Resp BP Pulse Ox 98.2 F 82 20 166/81 92 L 07/19/18 10:56 07/19/18 10:05 07/19/18 10:05 07/19/18 10:05 07/19/18 09:42 Active Medications Acetaminophen (Tylenol -) 650 mg PO Q6H PRN PRN Reason: FEVER Albuterol Sulfate (Ventolin 0.083% Nebulizer Soln -) 1 amp NEB Q4H PRN PRN Reason: SHORT OF BREATH/WHEEZING Amoxicillin/Clavulanate Potassium (Augmentin - 875mg Tablet) 1 tab PO BID@0800, 1730 [facility] Last Admin: 07/19/18 09:09 Dose: 1 tab Arformoterol Tartrate (Brovana (Restricted To Pulmonology/Resp) -) 1 amp NEB RBID [facility] Last Admin: 07/19/18 08:12 Dose: 1 amp Aspirin (Asa -) 81 mg PO DAILY [facility] Last Admin: 07/19/18 10:02 Dose: 81 mg Azithromycin (Zithromax -) 500 mg PO DAILY [facility] Last Admin: 07/19/18 10:02 Dose: 500 mg Citalopram Hydrobromide (Celexa -) 10 mg PO DAILY [facility] Last Admin: 07/19/18 10:02 Dose: 10 mg Donepezil HCl (Aricept -) 10 mg PO DAILY [facility] Last Admin: 07/19/18 10:02 Dose: 10 mg Heparin Sodium (Porcine) (Heparin -) 5,000 unit SQ TID [facility] Last Admin: 07/19/18 05:35 Dose: Not Given Sodium Chloride (Normal Saline -) 1,000 mls @ 75 mls/hr IV ASDIR [facility] Last Admin: 07/19/18 10:04 Dose: Not Given Loratadine (Claritin -) 10 mg PO DAILY [facility] Last Admin: 07/19/18 10:02 Dose: 10 mg Memantine (Namenda -) 10 mg PO DAILY [facility] Last Admin: 07/19/18 10:03 Dose: 10 mg Methylprednisolone Sodium Succinate (Solu-Medrol -) 40 mg IVPUSH Q6H-IV [facility] Last Admin: 07/19/18 10:01 Dose: 40 mg Polyethylene Glycol (Miralax (For Daily Use) -) 17 gm PO DAILY [facility] Quetiapine Fumarate (Seroquel Xr -) 50 mg PO DAILY [facility] Last Admin: 07/19/18 10:04 Dose: 50 mg Solifenacin (Vesicare -) 5 mg PO DAILY [facility] Last Admin: 07/19/18 10:02 Dose: 5 mg Tamsulosin HCl (Flomax -) 0.4 mg PO DAILY@0830 [facility] Last Admin: 07/19/18 09:09 Dose: 0.4 mg Constitutional: Yes: NAD Eyes: Yes: WNL HENT: Yes: WNL Neck: Yes: WNL Cardiovascular: Yes: Regular Rate and Rhythm, S1, S2 Respiratory: Yes: Bilateral wheezes and rhonchi Gastrointestinal: Yes: Normal Bowel Sounds, Soft Extremities: Yes: WNL Edema: No Labs: Problem List - Problems (1) Acute hypoxemic respiratory failure Code(s): J96.01 - ACUTE RESPIRATORY FAILURE WITH HYPOXIA (2) Pneumonia Code(s): J18.9 - PNEUMONIA, UNSPECIFIED ORGANISM Qualifiers: Pneumonia type: due to unspecified organism Laterality: unspecified laterality Lung location: unspecified part of lung Qualified Code(s): J18.9 - Pneumonia, unspecified organism (3) URI (upper respiratory infection) Code(s): J06.9 - ACUTE UPPER RESPIRATORY INFECTION, UNSPECIFIED Qualifiers: URI type: unspecified URI Qualified Code(s): J06.9 - Acute upper respiratory infection, unspecified (4) MIGDALIA (acute kidney injury) Code(s): N17.9 - ACUTE KIDNEY FAILURE, UNSPECIFIED (5) Mediastinal adenopathy Code(s): R59.0 - LOCALIZED ENLARGED LYMPH NODES Assessment/Plan IMP ACUTE HYPOXEMIC RESPIRATORY FAILURE IMPROVING LIKELY PNEUMONIA H/O BRONCHITIS PROSTATE CA HTN DEMENTIA MEDIASTINAL ADENOPATHY LIKELY REACTIVE MIGDALIA PLAN CONTINUE IV ABX IV STEROIDS INHALED BRONCHODILATORS SUPPLEMENTAL O2 TO MAINTAIN SATURATION F/U CHEST CT [address] FERNANDEZ
[2018-07-19] MEDS: POLYETHYLENE GLYCOL 3350 119 GM BTL PO SCH ×2 (13:55→16:17)
[2018-07-19] MEDS ORDERED: LOSARTAN POTASSIUM 50 MG TABLET (FP) PO ONE (14:28)
[2018-07-19] MEDS: predniSONE 10 MG TABLET (UD) PO SCH (14:50)
[2018-07-19] MEDS ORDERED: QUEtiapine FUMARATE 50 MG TABLET PO SCH (22:00)
[2018-07-20] MEDS: HEPARIN NA (PORCINE) 5,000 UNITS/ML 1ML VIAL SQ SCH ×2 (06:26→14:16)
--- NOTE | 2018-07-20 07:54 | PN ---
Teaching Attending Note Name of Resident: Brittney Kemp ATTENDING PHYSICIAN STATEMENT I saw and evaluated the patient. I reviewed the resident's note and discussed the case with the resident. I agree with the resident's findings and plan as documented. 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 Problem List - Problems (1) Pneumonia Assessment/Plan: switched to PO augmentin complete total 10 days of abx Code(s): J18.9 - PNEUMONIA, UNSPECIFIED ORGANISM Qualifiers: Pneumonia type: due to unspecified organism Laterality: unspecified laterality Lung location: unspecified part of lung Qualified Code(s): J18.9 - Pneumonia, unspecified organism (2) Acute hypoxemic respiratory failure Assessment/Plan: Due to pneumonia and reactive airways disease Saturating 91 on RA at rests drops to 88-99 on exertiion remains asymptomatic, cont Po prednisone add LABA/ LAMA + ICS on Dc discussed with Reparatory cleared to DC Home. Code(s): J96.01 - ACUTE RESPIRATORY FAILURE WITH HYPOXIA (3) MIGDALIA (acute kidney injury) Assessment/Plan: Resolved Code(s): N17.9 - ACUTE KIDNEY FAILURE, UNSPECIFIED (4) Dementia Assessment/Plan: chronic resume all home meds Code(s): F03.90 - UNSPECIFIED DEMENTIA WITHOUT BEHAVIORAL DISTURBANCE (5) Mediastinal adenopathy Assessment/Plan: most likely reactive Code(s): R59.0 - LOCALIZED ENLARGED LYMPH NODES (6) HTN (hypertension) Assessment/Plan: Resume home medications. Code(s): I10 - ESSENTIAL (PRIMARY) HYPERTENSION
[2018-07-20 08:33] LABS: HEMATOCRIT 38.3 % (35.4-49); HEMOGLOBIN 12.8 GM/dL (11.7-16.9); LYMPH % 8.6 % (8-40); MCH 31.3 pg (25.7-33.7); MCHC 33.6 g/dl (32.0-35.9); MEAN CELL VOLUME 93.2 fl (80-96); MEAN PLT VOLUME 9.1 fl (7.5-11.1); MONO % 7.1 % (3.8-10.2); NEUT % 84.3 % (42.8-82.8); PLATELET COUNT 206 K/MM3 (134-434); RDW 13.9 % (11.9-15.9); WHITE BLOOD COUNT 10.6 K/mm3 (4.0-10.0)
[2018-07-20] MEDS: ARFORMOTEROL TARTRATE 15 MCG/2 ML VIAL NEB SCH (08:33)
[2018-07-20 08:56] LABS: ANION GAP 5 MMOL/L (8-16); BLOOD UREA NITROGEN 28 mg/dL (7-18); CALCIUM 7.7 mg/dL (8.5-10.1); CHLORIDE 111 mmol/L (98-107); CO2 27 mmol/L (21-32); CREATININE 0.9 mg/dL (0.55-1.3); GLUCOSE,RANDOM 127 mg/dL (74-106); POTASSIUM 4.7 mmol/L (3.5-5.1); SODIUM 143 mmol/L (136-145)
[2018-07-20] MEDS: predniSONE 10 MG TABLET (UD) PO SCH (09:53)
[2018-07-20] MEDS: AMOX TR/POT CLAV 875MG/125MG TABLETS (FP) PO SCH ×2 (09:53→17:07)
[2018-07-20] MEDS: AZITHROMYCIN 250 MG TABLET PO SCH (09:54)
[2018-07-20] MEDS: DONEPEZIL HCL 10 MG TABLET (FP) PO SCH (09:54)
[2018-07-20] MEDS: LORATADINE 10 MG TABLET PO SCH (09:54)
[2018-07-20] MEDS: CITALOPRAM HYDROBROMIDE 10 MG TABLET (FP) PO SCH (09:54)
[2018-07-20] MEDS: MEMANTINE HCL 10 MG TABLET (FP) PO SCH (09:54)
[2018-07-20] MEDS: ASPIRIN 81 MG CHEWABLE TABLETS PO SCH (09:54)
[2018-07-20] MEDS: TAMSULOSIN HCL 0.4 MG CAP PO SCH (09:54)
[2018-07-20] MEDS: POLYETHYLENE GLYCOL 3350 119 GM BTL PO SCH (09:57)
[2018-07-20] MEDS ORDERED: LOSARTAN POTASSIUM 50 MG TABLET (FP) PO SCH (10:00)
[2018-07-20] MEDS ORDERED: QUEtiapine FUMARATE 25 MG TABLET (FP) PO SCH (10:00)
[2018-07-20 10:03] VITALS: BP 160/83; TEMP 98
[2018-07-20 10:44] VITALS: PULSE 68
--- NOTE | 2018-07-20 12:53 | PN ---
Progress Note (short form) - Note Progress Note: Overall feels improved. No acute events overnight. Intake & Output 07/17/18 07/18/18 07/19/18 07/20/18 23:59 23:59 23:59 23:59 Intake Total 1005 2350 120 Output Total 200 600 Balance 805 1750 120 Weight 160 lb 156 lb 155 lb 3.2 oz 154 lb 3.2 oz Last Vital Signs Temp Pulse Resp BP Pulse Ox 98.0 F 68 18 160/83 98 07/20/18 10:02 07/20/18 10:42 07/20/18 10:02 07/20/18 10:02 07/20/18 10:42 Active Medications Acetaminophen (Tylenol -) 650 mg PO Q6H PRN PRN Reason: FEVER Albuterol Sulfate (Ventolin 0.083% Nebulizer Soln -) 1 amp NEB Q4H PRN PRN Reason: SHORT OF BREATH/WHEEZING Last Admin: 07/19/18 18:30 Dose: 1 amp Amoxicillin/Clavulanate Potassium (Augmentin - 875mg Tablet) 1 tab PO BID@0800, 1730 [facility] Last Admin: 07/20/18 09:53 Dose: 1 tab Arformoterol Tartrate (Brovana (Restricted To Pulmonology/Resp) -) 1 amp NEB RBID [facility] Last Admin: 07/20/18 08:33 Dose: 1 amp Aspirin (Asa -) 81 mg PO DAILY [facility] Last Admin: 07/20/18 09:54 Dose: 81 mg Azithromycin (Zithromax -) 500 mg PO DAILY [facility] Last Admin: 07/20/18 09:54 Dose: 500 mg Citalopram Hydrobromide (Celexa -) 10 mg PO DAILY [facility] Last Admin: 07/20/18 09:54 Dose: 10 mg Donepezil HCl (Aricept -) 10 mg PO DAILY [facility] Last Admin: 07/20/18 09:54 Dose: 10 mg Heparin Sodium (Porcine) (Heparin -) 5,000 unit SQ TID [facility] Last Admin: 07/20/18 06:26 Dose: 5,000 unit Sodium Chloride (Normal Saline -) 1,000 mls @ 75 mls/hr IV ASDIR [facility] Last Admin: 07/19/18 10:04 Dose: Not Given Loratadine (Claritin -) 10 mg PO DAILY [facility] Last Admin: 04/28/19 09:54 Dose: 10 mg Losartan Potassium (Cozaar -) 100 mg PO DAILY [facility] Last Admin: 07/20/18 09:53 Dose: 100 mg Memantine (Namenda -) 10 mg PO DAILY [facility] Last Admin: 07/20/18 09:54 Dose: 10 mg Polyethylene Glycol (Miralax (For Daily Use) -) 17 gm PO DAILY [facility] Last Admin: 07/20/18 09:57 Dose: 17 grams Prednisone (Deltasone -) 30 mg PO DAILY [facility] Last Admin: 07/20/18 09:53 Dose: 30 mg Quetiapine Fumarate (Seroquel -) 100 mg PO HS [facility] Last Admin: 07/19/18 21:21 Dose: 100 mg Quetiapine Fumarate (Seroquel -) 25 mg PO DAILY [facility] Last Admin: 07/20/18 09:54 Dose: 25 mg Tamsulosin HCl (Flomax -) 0.4 mg PO DAILY@0830 [facility] Last Admin: 07/20/18 09:54 Dose: 0.4 mg Constitutional: Yes: NAD Eyes: Yes: WNL HENT: Yes: WNL Neck: Yes: WNL Cardiovascular: Yes: Regular Rate and Rhythm, S1, S2 Respiratory: Yes: Scattered bilateral rhonchi Gastrointestinal: Yes: Normal Bowel Sounds, Soft Extremities: Yes: WNL Edema: No Labs: Laboratory Results - last 24 hr 07/20/18 07/20/18 07:00 07:00 WBC 10.6 H RBC 4.10 Hgb 12.8 Hct 38.3 MCV 93.2 MCH 31.3 MCHC 33.6 RDW 13.9 Plt Count 206 MPV 9.1 Absolute Neuts (auto) 9.0 H Neutrophils % 84.3 H Lymphocytes % 8.6 Monocytes % 7.1 D Eosinophils % 0.0 Basophils % 0.0 Nucleated RBC % 0 Sodium 143 Potassium 4.7 Chloride 111 H Carbon Dioxide 27 Anion Gap 5 L BUN 28 H Creatinine 0.9 Creat Clearance w eGFR 81.19 Random Glucose 127 H Calcium 7.7 L Problem List - Problems (1) Acute hypoxemic respiratory failure Code(s): J96.01 - ACUTE RESPIRATORY FAILURE WITH HYPOXIA (2) Pneumonia Code(s): J18.9 - PNEUMONIA, UNSPECIFIED ORGANISM Qualifiers: Pneumonia type: due to unspecified organism Laterality: unspecified laterality Lung location: unspecified part of lung Qualified Code(s): J18.9 - Pneumonia, unspecified organism (3) URI (upper respiratory infection) Code(s): J06.9 - ACUTE UPPER RESPIRATORY INFECTION, UNSPECIFIED Qualifiers: URI type: unspecified URI Qualified Code(s): J06.9 - Acute upper respiratory infection, unspecified (4) MIGDALIA (acute kidney injury) Code(s): N17.9 - ACUTE KIDNEY FAILURE, UNSPECIFIED (5) Mediastinal adenopathy Code(s): R59.0 - LOCALIZED ENLARGED LYMPH NODES Assessment/Plan IMP ACUTE HYPOXEMIC RESPIRATORY FAILURE IMPROVING LIKELY PNEUMONIA H/O BRONCHITIS PROSTATE CA HTN DEMENTIA MEDIASTINAL ADENOPATHY LIKELY REACTIVE MIGDALIA PLAN WOULD D/C ON LAMA/LABA SUCH ANORO OD PREDNISONE 40MG OD X 5 DAYS ALBUTEROL PRN NO SMOKING F/U CHEST CT 6 WKS NO PULMONARY CONTRAINDICATION FOR D/C DR FERNANDEZ
--- NOTE | 2018-07-20 13:52 | DS ---
Physical Exam: SUBJECTIVE: Patient seen and examined at bedside this morning. No acute events overnight. Patient has no complaints, and denies fever, chills, headache, chest pain, shortness of breath, abdominal pain, diarrhea. OBJECTIVE: Vital Signs Temperature 98.0 F 07/20/18 10:02 Pulse Rate 68 07/20/18 10:42 Respiratory Rate 18 07/20/18 10:02 Blood Pressure 160/83 07/20/18 10:02 O2 Sat by Pulse Oximetry (%) 98 07/20/18 10:42 PHYSICAL EXAM GENERAL: The patient is awake, alert, and fully oriented, on room air HEAD: Normal with no signs of trauma. EYES: PERRLA, EOMI, sclera anicteric, conjunctiva clear. ENT:oropharynx clear without exudates, moist mucous membranes. NECK: Trachea midline, full range of motion, supple. LUNGS: clear to auscultation bilaterally HEART: RRR, S1, S2 without murmur, rub or gallop. ABDOMEN: Soft, nontender, nondistended, normoactive bowel sounds. EXTREMITIES: 2+ pulses, warm, well-perfused, no edema. NEUROLOGICAL: Cranial nerves II through XII grossly intact. Normal speech, gait not observed. PSYCH: Normal mood, normal affect. SKIN: Warm, dry, normal turgor, no rashes or lesions noted LABS Laboratory Results - last 24 hr 07/20/18 07/20/18 07:00 07:00 WBC 10.6 H RBC 4.10 Hgb 12.8 Hct 38.3 MCV 93.2 MCH 31.3 MCHC 33.6 RDW 13.9 Plt Count 206 MPV 9.1 Absolute Neuts (auto) 9.0 H Neutrophils % 84.3 H Lymphocytes % 8.6 Monocytes % 7.1 D Eosinophils % 0.0 Basophils % 0.0 Nucleated RBC % 0 Sodium 143 Potassium 4.7 Chloride 111 H Carbon Dioxide 27 Anion Gap 5 L BUN 28 H Creatinine 0.9 Creat Clearance w eGFR 81.19 Random Glucose 127 H Calcium 7.7 L HOSPITAL COURSE: Date of Admission:07/16/18 Date of Discharge: 07/20/18 Patient is an 78 year old female with past medical history of BPH, gastritis, HTN, Alzheimer's, Depression/Anxiety, CHF, constipation and prostate cancer s/p radiation,chemotx, presenting with a 2 week history of productive cough and 2 day history of worsening SOB. On admission patient was noted to have fever and leukocytosis, with hypoxic respiratory failure. Patient was placed on bipap and saturation improved. Chest CT revealed new RUL infitrates and showed prominent mediastinal lymph nodes. Patient was started on IV Ceftriaxone and Azithromycin. Pulmonology was consulted and patient was started on Arformoterol neb and IV solu-medrol. Patient improved throughout his hospital stay. Pre and post was done and patient was sent home on oxygen. Patient was instructed to complete PO augmentin and azithromycin for 5 more days, prednisone 40mg for 5 days and Anoro IH daily. Patient was to follow up with PCP and pulmonology for a repeat chest CT in 6 weeks. Minutes to complete discharge: 40 Discharge Summary Reason For Visit: UPPER RESPIRATORY INFECTION Current Active Problems MIGDALIA (acute kidney injury) (Acute) Acute hypoxemic respiratory failure (Acute) Mediastinal adenopathy (Acute) Pneumonia (Acute) Dementia (Chronic) HTN (hypertension) (Chronic) Condition: Improved - Instructions Diet, Activity, Other Instructions: Your visit You were admitted to the hospital because you were having cough and shortness of breath. You had a pneumonia and were treated with IV antibiotics. You were also given steroids for your COPD. You will also be sent home with an oxygen. Please use it as needed. Medications Please take the following medications as prescribed. 1. Augmentin 875mg twice a day for 5 more days. 2. Azithromycin 500mg daily for 5 more days. 3. Prednisone 30mg daily for 5 days. 4. Anoro ellipta inhaler, 1 puff daily. 5. Albuterol neb every 4 hours as needed for shortness of breath/wheezing Continue your other home medications. Follow-up Please follow up with your primary care physician (Dr. Garcia) within 1 week. Please follow up with the geodetic technician (Dr. Turner) within 1 week. YOU WILL NEED A REPEAT CT SCAN OF THE CHEST IN 6 WEEKS. Additional info Call 911 or go to the ED if with any worsening fever, chills, headache, dizziness, chest pain, shortness of breath, abdominal pain, diarrhea, urinary symptoms. Referrals: Raul Turner MD [Staff Physician] - Josi Fortune MD [Primary Care Provider] - Disposition: HOME - Home Medications Comprehensive Discharge Medication List: Ambulatory Orders Atorvastatin Ca [Lipitor] 80 mg PO HS 10/01/16 Citalopram Hydrobromide [Celexa -] 10 mg PO DAILY 10/01/16 Furosemide [Lasix -] 20 mg PO DAILY 10/01/16 Loratadine 10 mg PO DAILY 10/01/16 Oxybutynin Chloride [Oxybutynin Chloride ER] 10 mg PO DAILY 10/01/16 Tamsulosin HCl [Flomax -] 0.4 mg PO DAILY 10/01/16 Aspirin [ASA -] 81 mg PO DAILY 07/16/18 Donepezil HCl 10 mg PO DAILY 07/16/18 Memantine HCl 10 mg PO BID 07/16/18 Polyethylene Glycol 3350 17 gm PO DAILY 07/16/18 Quetiapine Fumarate [Seroquel -] 25 mg PO ASDIR 07/17/18 Solifenacin Succinate [Vesicare -] 10 mg PO DAILY 07/17/18 Albuterol 0.083% Nebulizer Lula [Ventolin 0.083% Nebulizer Soln -] 1 neb NEB Q4H PRN #1 box 07/20/18 Amox-Tr/K Cl [Augmentin 875-125mg Tablet -] 1 tab PO BID@0800,1730 #10 tablet Azithromycin [Zithromax 250mg Tablets -] 500 mg PO DAILY #10 tablet 07/20/18 Losartan Potassium [Cozaar -] 100 mg PO DAILY tablet 07/20/18 Polyethylene Glycol 3350 [Miralax 119 gm Btl -] 17 gm PO DAILY bottle 07/20/18 Prednisone [Deltasone] 40 mg PO DAILY 5 Days #10 tablet 07/20/18 Umeclidinium Brm/Vilanterol Tr [Anoro Ellipta 62.5-25 Mcg INH] 1 each IH DAILY # 1 blst.w.dev 07/20/18 This patient is new to me today: No Emergency Visit: Yes ED Registration Date: 07/16/18 Care time: The patient presented to the Emergency Department on the above date and was hospitalized for further evaluation of their emergent condition. Critical Care patient: No - Discharge Referral Referred to [facility] No
== END 2018-07-20 17:18 | disposition home health service (06) | DRG 871 ==
LOC: JER 10:21 → JERBED 13:00 → J4W 07-17 00:58 → J5S 07-18 20:01
PROVIDERS: ADMIT Internal Medicine; ATTEND Internal Medicine
PROC: 5A09357 Assistance with Respiratory Ventilation, Less than 24 Consecutive Hours, Continuous Positive Airway Pressure (ICD-10-PCS; principal; 2018-07-18)
DX: A41.89 Other specified sepsis (principal); J96.01 Acute respiratory failure with hypoxia; J18.9 Pneumonia, unspecified organism; N17.9 Acute kidney failure, unspecified; M62.82 Rhabdomyolysis; I11.0 Hypertensive heart disease with heart failure; I50.9 Heart failure, unspecified; G30.9 Alzheimer's disease, unspecified; E78.5 Hyperlipidemia, unspecified; N40.0 Benign prostatic hyperplasia without lower urinary tract symptoms; K59.00 Constipation, unspecified; Z85.46 Personal history of malignant neoplasm of prostate; J06.9 Acute upper respiratory infection, unspecified; K29.70 Gastritis, unspecified, without bleeding; F32.9 Major depressive disorder, single episode, unspecified; F41.9 Anxiety disorder, unspecified; R59.0 Localized enlarged lymph nodes
CPT/HCPCS: 36415; 36600; 71045-TC-FY; 71250-TC; 80048; 80053; 81003; 82550; 82553; 82803; 83036; 83605; 83735; 83880; 84100; 84484; 85025; 85610; 85730; 87040; 87086; 87804; 87807; 87899; 90670; 93005; 93010; 94640; 94660; 94761; 97116-GP; 97161-GP; 99285-25; J0131; J1644; J7030

== ENCOUNTER 2020-03-10 07:25 | Emergency (ER) | payer OTHER ==
[2020-03-10 07:35] VITALS: BP 0/0; PULSE 0; BMI 26.6
== END 2020-03-10 11:01 | disposition expired ==
LOC: JER 07:25
DX: I46.9 Cardiac arrest, cause unspecified (principal); J96.90 Respiratory failure, unspecified, unspecified whether with hypoxia or hypercapnia
CPT/HCPCS: 82962; 99283-25